=== PATIENT | male | born 1955 | race Caucasian/White ===

== ENCOUNTER 2020-07-30 07:54 | Outpatient (CLI) | payer MEDICARE, SELFPAY ==
--- NOTE | 2020-07-30 08:00 | ECG_ITS ---
Measurements Intervals [place] Rate: 71 P: 66 NH: 182 QRS: 28 QRSD: 106 T: 49 QT: 390 QTc: 424 Interpretive Statements SINUS RHYTHM POOR R WAVE PROGRESSION, ANTERIOR LEADS BASELINE ARTIFACT- I, III, AVR, V4 BORDERLINE ECG Electronically Signed On 07-30-2020 8:19:55 CDT by Jose Pope D.O.
== END 2020-07-30 07:55 | disposition home or self-care (01) ==
LOC: ANHSURGERY 07:59
PROVIDERS: PCP Family Medicine Sports Medicine; Visit Provider Plastic Surgery
DX: Z01.818 Encounter for other preprocedural examination (principal); I10 Essential (primary) hypertension
CPT/HCPCS: 93005

== ENCOUNTER → 2020-08-02 02:15 | Outpatient (CLI) | payer MEDICARE, SELFPAY ==
[2020-08-02 19:19] LABS: SARS-CoV-2 RNA PCR Negative
== END ==
PROVIDERS: PCP Family Medicine Sports Medicine; Visit Provider Plastic Surgery
DX: Z01.812 Encounter for preprocedural laboratory examination (principal); Z20.822 Contact with and (suspected) exposure to COVID-19
CPT/HCPCS: C9803; U0003; U0005

== ENCOUNTER 2020-08-05 00:10 | Day surgery (SDC) | payer MEDICARE, SELFPAY ==
[2020-07-27 09:41] VITALS: BMI 29.6
[2020-08-05 06:25] VITALS: BP 145/89; PULSE 74; RESP 20; TEMP 36.8; O2SAT 96
[2020-08-05] MEDS: LACTATED RINGERS 1,000 ML 30 ML IV CONT (07:00)
--- NOTE | 2020-08-05 07:05 | WPDANESEPPF ---
Anes - Initial Pre Proc Eval Procedure: Operation Date: 08/05/20 07:30 Proposed Procedures p Excision Of Ulcerated Neoplasm Of The Right Radial Forearm With Full Thickness Skin Graft, Excision Of Ulcerated Neoplasm Left Anterior Christian With Frozen Section - Moi Mendes MD Date/Time: 08/05/20 07:05 Surgeon: Moi Mendes MD Pre Op Diagnosis: ulcerated neoplasm right distal radial forearm Patient Data Age: 64 Gender: M Height: 1.85 m Weight: 102 kg Allergies Allergy/AdvReac Type Severity Reaction Status Date / Time Penicillins AdvReac Unknown UNKNOWN Unverified 08/05/20 06:49 Home Medications Medication Instructions Recorded Confirmed Type amlodipine 10 mg PO QAM 07/27/20 08/05/20 History cariprazine [Vraylar] 6 mg PO DAILY 07/27/20 08/05/20 History lisinopril 20 mg PO QAM 07/27/20 08/05/20 History propranolol 80 mg PO BID 07/27/20 08/05/20 History quetiapine 50 mg PO HS 07/27/20 08/05/20 History Patient hx anesthesia problems: none Family hx anesthesia problems: none [facility] Past Medical History Medical History (Updated 08/04/20 @ 10:57 by Aaron Gallegos DO) Anxiety Bipolar disorder Depression History of skin cancer Hypertension Social History Social History Smoking status: Never smoker Alcohol intake: former Alcohol use details: SOCIAL DRINKER IN PAST Substance use: never Living arrangements: with family Additional living arrangements comments: SON Spiritual care concerns: No Anes - Eval Final PreProcedure Day of Procedure 08/05/20 07:05 Patient weight: overweight Heart: regular rate and rhythm Lungs: clear to auscultation and normal air movement Airway: Mallampati scale class III Neurological: alert and oriented Last oral intake: >/= 8 hours ASA classification: III Emergent: no Anesthetic plan: proceed Anesthesia type and monitoring: general GIVS and standard monitoring Informed Consent: The patient's anesthetic plan and its attendant risks and benefits were discussed with the patient/family/POA. Questions were solicited and answers provided to the satisfaction of the patient/family/POA.
--- NOTE | 2020-08-05 07:09 | WPDHPUPDATE1 ---
History and Physical Update Update Date/Time: 08/05/20 07:09 History and Physical has been reviewed, including an updated exam of the patient. There are NO changes in the patient's condition. Risks, benefits, and alternatives have been discussed and questions answered. Patient agrees to proceed with procedure.
[2020-08-05] MEDS: LIDO 1%/EPINEPHRINE 1:100,000 50 ML VIAL INFILTRATE (07:45)
[2020-08-05] MEDS: BACITRACIN OINTMENT 15 GM TUBE 1 APPLIC TOPICAL (07:45)
--- NOTE | 2020-08-05 08:01 | SUR.OPER ---
Frozen section sent with RAMOS Betancourt and received in pathology by Addie
--- NOTE | 2020-08-05 08:37 | SUR.OPER ---
Frozen section # 2 sent with Jl Gilliam RN and received in pathology by Addie
--- NOTE | 2020-08-05 09:02 | PM.OP ---
Procedure Note - Brief Procedure Note - Brief Date of procedure: 08/05/20 Pre-op diagnosis: ulcerated neoplasm right distal radial forearm Ulcerated neoplasm of the right distal radial forearm. 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
[2020-08-05 09:08] VITALS: BP 112/80; PULSE 66; RESP 12; O2SAT 90
--- NOTE | 2020-08-05 09:08 | P.OP_ITS ---
Procedure Note - Detailed Date of procedure: 08/05/20 Pre-op diagnosis: ulcerated neoplasm right distal radial forearm Ulcerated neoplasm of the right distal dorsal forearm. Ulcerated neoplasm of the left anterior yarsani Post-op diagnosis: same Procedure performed: 2.5 cm excision of ulcerated neoplasm of the left anterior yarsani with frozen section and intermediate repair 4 cm. 3 cm excision of ulcerated neoplasm of the right distal radial forearm with intermediate repair 5 cm Description of procedure: The 2 sites were marked on the patient as he waited in the holding area. He was taken to the operating room and placed supine on operating table. A time-out was held and confirmed. The face right forearm were prepped and draped in usual fashion. The lesion from the left yarsani was excised and marked at 12:00 toward the eyebrow. The pathologist on frozen section reveals the the 2 to 3 margin was positive. A 2nd excision from 12-6 was taken with a new 2:00 margin marked. That was reported out as showing free margins. This wound was closed intermediate fashion with undermining of approximately a cm and placement of 3-0 Vicryl sutures and 4-0 nylon skin sutures. The lesion on the forearm was excised as marked with at least 5 mm margin. This specimen was sent for permanent section. The wound was undermined as needed and approximated with intradermal 3-0 Vicryl standing cones removed both ends and the skin was closed with a running 4-0 nylon. Small appropriate bandages were applied to each site and the patient is discharged in stable condition no tourniquet was utilized. Anesthesia: MAC Surgeon: Moi Mendes MD Boat And Plant Utility Supervisor: Carter camarena Estimated blood loss (mL): 5 Drains: No Packing: No Pathology: yes Complications: No immediate complications Condition: stable Disposition: same day
[2020-08-05 09:35] VITALS: BP 126/81; PULSE 60; O2SAT 96
[2020-08-05 10:05] VITALS: BP 134/84; PULSE 58; O2SAT 97
[2020-08-05 10:30] VITALS: BP 128/77; PULSE 60
== END 2020-08-05 10:48 | disposition home or self-care (01) ==
PROVIDERS: PCP Family Medicine Sports Medicine; Visit Provider Plastic Surgery
PROC: (CPT 11643; principal; 2020-08-05 07:30)
DX: C44.319 Basal cell carcinoma of skin of other parts of face (principal); C44.612 Basal cell carcinoma of skin of right upper limb, including shoulder; I10 Essential (primary) hypertension; F31.9 Bipolar disorder, unspecified; F41.9 Anxiety disorder, unspecified
CPT/HCPCS: 11643; 12052; 11603; 12032; 88304; 88305; 88331; 88332; A9270; J2704; J7120

== ENCOUNTER → 2023-11-06 09:10 | Outpatient (REF) | payer MEDICARE, SELFPAY | LOC: ANHLAB 09:10 | PROVIDERS: PCP Family Medicine Sports Medicine; Visit Provider Plastic Surgery | DX: C44.519 Basal cell carcinoma of skin of other part of trunk (principal) | CPT/HCPCS: 88305 ==

== ENCOUNTER 2024-05-15 11:56 | Outpatient (CLI) | payer MEDICARE, SELFPAY ==
--- OUTSIDE RECORDS SUMMARY | 2024-05-15 12:02 | XMS_ITS | Clinical Summary ---
Author Organization [facility] Address [address] [place] [id number] Care Team Providers Care Sheet Mill Supervisor Name Role Phone None, Provider Primary Care Provider Unavaila ble Social History Tobacco Use Types Packs/Day Years Used Date Smoking Tobacco: Never Assessed Sex and Gender Information Value Date Recorded Sex Assigned at Not on file Legal Sex Male 5:55 PM CDT Gender Identity Not on file Sexual Orientation Not on file Plan of Treatment Health Maintenance Due Date Last Done Comments Colorectal Cancer Screening Colonoscopy (10 Years) 1954 Hepatitis C 1972 Zoster Vaccines (1 of 2) 2004 DTaP, Tdap and Td Vaccines (1 - Tdap) 04/03/2006 04/02/2006 Pneumococcal Vaccine: 65+ Years (1 of 1 - PCV) 10/29/2019 COVID-19 Vaccine (1 - 2023- season) 2023 Influenza Adult (#1) 2023 02/07/2022, 01/12/2021, 01/15/2020, Additional history exists RSV Immunization or 60+ Years (1 - 1-dose 75+ series) 2029 Meningococcal B Vaccine Aged Out No l onger eligible based on patient's age to complete this topic Meningococcal Vaccine Aged Out No aurora kartik eligible based on patient's age to complete this topic RSV Immunizations Under 20 Months Aged Out No longer eligible based on patient's age to complete this topic Care Teams Sheet Mill Supervisor Relationship Specialty Start Date End Date None, Provider, PCP - General 01/03/19
--- OUTSIDE RECORDS SUMMARY | 2024-05-15 12:03 | XMS_ITS | Referral Summary ---
Author Organization [facility] Address [address] [place] [address] Care Team Providers Care Client Technologies Analyst Name Role Phone Braeden Dubon MD Primary Care Provider Lincoln Ennis JIVE DEVELOPER Unavailable [phone] Tiesha Caban JIVE DEVELOPER Unavailable Encounters Date Type Department Care Team Description 05/12/2024 Results Follow-Up [facility] Primary Care at [address] [address] Braeden Dubon MD 05/08/2024 12:01 PM HALVER MACHINE OPERATOR - 05/08/2024 11:59 PM HALVER MACHINE OPERATOR Hospital Encounter [address] [address] Mixed hyperlipidemia Discharge Disposition: Discharge to home or self care 05/08/2024 12:00 PM HALVER MACHINE OPERATOR Lab [facility] Outpatient Lab at [address] [id number] Essential hypertension (Primary Dx) 05/08/2024 11:30 AM HALVER MACHINE OPERATOR Office Visit [facility] Primary Care at [address] [address] Braeden Dubon MD Essential hypertension (Primary Dx); Mixed hyperlipidemia; Benign prostatic hyperplasia with urinary hesitancy; Severe obesity (HCC); Sleep disorder, unspecified 04/18/[address] [facility] Primary Care at [address] [address] Giuliana Summers MA 04/07/[address] [facility] Primary Care at [address] [address] Braeden Dubon MD Medical Records Request from Last 3 Months Allergies Active Allergy Reactions Criticality Noted Date Comments Penicillins Urticaria Medium 11/19/2014 Medications fluorouraciL (EFUDEX) 5 % cream PLEASE SEE ATTACHED FOR DETAILED DIRECTIONS 11/12/19 Active propranolol LA (INDERAL LA) 60 mg 24 hr capsuleIndication s:Essential tremor Take 1 capsule (60 mg total) by mouth daily 90 capsule 3 02/06/20 24 2024 Active rosuvastatin (CRESTOR) 5 mg tabletIndications :Mixed hyperlipidemia Take 1 tablet (5 mg total) by mouth daily 90 tablet 3 02/06/20 24 2024 Active lisinopriL (PRINIVIL,ZESTRIL ) 20 mg tabletIndications :Essential hypertension Take 1 tablet (20 mg total) by mouth daily 90 tablet 3 02/06/20 24 2024 Active finasteride (PROSCAR) 5 mg tablet Take 1 tablet (5 mg total) by mouth daily 04/07/19 25 Active triamcinolone (KENALOG) 0.1 % cream APPLY TWICE A DAY FOR NO LONGER THEN 2 WEEKS NEEDED TO LOWER LEGS DIRECTED 04/21/19 25 Active Vraylar 6 mg capsule Take by mouth daily 02/11/20 22 2024 Discontinued olopatadine (PATANOL) 0.1 % ophthalmic solutionIndicatio ns:Allergic Conjunctivitis Administer 1 drop into both eyes 2 (two) times a day as needed for allergies 15 mL 2 09/22/19 23 2024 Discontinued Active Problems Problem Noted Date Diagnosed Date Benign prostatic hyperplasia with urinary hesita ncy 05/08/2024 Class 2 obesity due to exces s calories without serious comorbidity with body mass index (BMI) of 37.0 to 37.9 in adult 02/19/2024 Assessment & Plan (02/19/2024 9:50 AM HALVER MACHINE OPERATOR): BMI Follow-up includes: nutrition counseling, exercise counseling, and education provided. Bipolar I disorder 01/09/2024 Severe obesity 01/09/2024 Assessment & Plan (01/09/2024 10:22 AM CDT): BMI Follow-up includes: nutrition counseling and education provided. Encounter to establish care with new doctor 12/24 Assessment & Plan (01/09/2024 10:31 AM CDT): A(n) initial Medicare Annual Wellness Visit has been performed today. Carter Rubio is not up to date on screening tests. He is in need of Prostate screening, hep c, and Cholesterol screening. He is not up to date on needed preventative vaccinations; He is in need of Influenza and Pneumonia (Prevnar-13 or Pneumovax-23). We discussed healthy lifestyle habits, educational material has been given. Medications reviewed, changes documented as per the medical record and discussed with patient along with risks vs benefits. Specific topics reviewed: drugs, ETOH, and tobacco, importance of regular dental care, importance of regular exercise, importance of varied diet, limit TV, media violence, minimize junk food, and seat belts. Return in 3 months Essential hypertension 01/09/2024 Mixed hyperlipidemia 01/09/2024 Essential tremor 03/31/2020 Immunizations Immunization Administration Dates Next Due Hep B Vaccine 10/02/2006,04/02/2006,02/26/2006 Influenza, Quadrivalent, Hig h Dose, Preservative Free, Intrr 11/21/2021 Influenza, Quadrivalent, Spl it, Intramuscular 12/24/2018 Influenza, Quadrivalent, Spl it, Preservative Free, Intramuscular 01/15/2020 Influenza, Trivalent, High D ose, Split, Preservative Free, Intramuscular 01/09/2024 Influenza, Unspecified 02/07/2022,01/12/2021 Pneumococcal Conjugate Pcv20 01/09/2024 Td, adsorbed 04/02/2006 Social History Tobacco Use Types Packs/Day Years Used Date Smoking Tobacco: Never Smokeless Tobacco: Never PHQ-2 Answer Date Recorded PHQ-2 Total Score (If total score is 3 or more points, staff should administer the PHQ-9) 0 05/08/2024 Sex and Gender Information Value Date Recorded Sex Assigned at Not on file Legal Sex Male 10:42 AM HALVER MACHINE OPERATOR Gender Identity Not on file Sexual Orientation Not on file Last Filed Vital Signs Vital Sign Reading Time Taken Comments Blood Pressure 126/80 05/08/2024 11:28 AM HALVER MACHINE OPERATOR Pulse 84 05/08/2024 11:28 AM HALVER MACHINE OPERATOR Temperature 36.1 C (96.9 F) 05/08/2024 11:28 AM HALVER MACHINE OPERATOR Respiratory Rate 18 05/08/2024 11:28 AM HALVER MACHINE OPERATOR Oxygen Saturation 97% 05/08/2024 11:28 AM HALVER MACHINE OPERATOR Inhaled Oxygen Concentration - - Weight 132 kg (291 lb) 05/08/2024 11:28 AM HALVER MACHINE OPERATOR Height 185.4 cm (6' 1 ) 05/08/2024 11:28 AM HALVER MACHINE OPERATOR Body Mass Index 38.39 05/08/2024 11:28 AM HALVER MACHINE OPERATOR Plan of Treatment Not on file Procedures Procedure Name Priority Date/Time Associated Diagnosis Comments LIPID PANEL Routine 05/08/2024 12:01 PM HALVER MACHINE OPERATOR Mixed hyperlipidemia HEPATITIS C ANTIBODY Routine 01/09/2024 10:42 AM CDT Encounter for hepatitis C screening test for low risk patient PSA SCREEN Routine 01/09/2024 10:42 AM CDT Elevated PSA, between 10 and less than 20 ng/ml from Last 3 Months or Most Recently Relevant to Health Maintenance Results * (ABNORMAL) Lipid panel (05/08/2024 12:01 PM HALVER MACHINE OPERATOR) Cholesterol 216(H) 30 - 199 mg/dL Comment: Interpretive Data Ages < or = 19 years Acceptable: <170 mg/dL Borderline high: 170-199 mg/dL High: >or= 200 mg/dL Ages > or = 20 years Desirable: <200 mg/dL Borderline high: 200-239 mg/dL High: >or= 240 mg/dL Literature References: 1. Expert Panel on Integrated Guidelines for Cardiovascular Health and Risk Reduction in Children and Adolescents. Pediatrics 2011;128:S213 2. NCEP Expert Panel. Circulation 2004;110:227 Current Interpretive Data was last revised on 2017. Triglycerides 179(H) <=149 mg/dL VIRAL PRESSLEY Comment: Interpretive Data Ages < or = 9 years Acceptable: <75 mg/dL Borderline high: 75-99 mg/dL High: >or= 100 mg/dL Ages 10 to 20 years Acceptable: <90 mg/dL Borderline high: 90-129 mg/dL High: >or= 130 mg/dL Ages > or = 20 years Desirable: <150 mg/dL Borderline high: 150-199 mg/dL High: 200-499 mg/dL Very high: >or= 499 mg/dL Literature References: 1. Expert Panel on Integrated Guidelines for Cardiovascular Health and Risk Reduction in Children and Adolescents. Pediatrics 2011;128:S213 2. NCEP Expert Panel. Circulation 2004;110:227 Current Interpretive Data was last revised on 2017. HDL 41 >=40 mg/dL VIRAL PRESSLEY Comment: Interpretive Data Ages < or = 19 years Acceptable: >45 mg/dL Borderline low: 40-45 mg/dL Low: <40 mg/dL Ages > or = 20 years Desirable: >or= 60 mg/dL Low: <40 mg/dL Literature References: 1. Expert Panel on Integrated Guidelines for Cardiovascular Health and Risk Reduction in Children and Adolescents. Pediatrics 2011;128:S213 2. NCEP Expert Panel. Circulation 2004;110:227 Current Interpretive Data was last revised on 2017. LDL, calculated 143(H) <=129 mg/dL VIRAL Comment: Interpretive Data Ages < or = 19 years Acceptable: <110 mg/dL Borderline high: 110-129 mg/dL High: >or= 130 mg/dL Ages > or = 20 years Optimal: <100 mg/dL Near optimal: 100-129 mg/dL Borderline high: 130-159 mg/dL High: >160 mg/dL Calculated using the Shady LDL-C estimating equation. This equation was implemented on 2023. Prior to this date LDL-C was estimated using the Friedewald equation. Literature References: 1. Expert Panel on Integrated Guidelines for Cardiovascular Health and Risk Reduction in Children and Adolescents. Pediatrics 2011;128:S213 2. NCEP Expert Panel. Circulation 2004;110:227 3. Shady Uribe al. SATCIA Cardiol. 2019July 24;5(5):540-548. doi: 10.1001/jamacardio.2020.0013 Current Interpretive Data was last revised on 2023. Non-HDL Cholesterol 175 mg/dL VIRAL PRESSLEY Comment: Interpretive Data Ages < or = 19 years Acceptable: <120 mg/dL Borderline high: 120-144 mg/dL High: >145 mg/dL Ages > or = 20 years When triglycerides are >200 mg/dL, Non-HDL cholesterol is a secondary target of therapy with treatment goals that are 30 mg/dL greater than the LDL cholesterol target. Literature References: 1. Expert Panel on Integrated Guidelines for Cardiovascular Health and Risk Reduction in Children and Adolescents. Pediatrics 2011;128:S213 2. NCEP Expert Panel. Circulation 2004;110:227 Current Interpretive Data was last revised on 2017. Chol/HDL ratio 5 VIRAL Blood 05/08/2024 12:0 1 PM HALVER MACHINE OPERATOR 05/08/2024 9:04 PM HALVER MACHINE OPERATOR Braeden Dubon MD LAB BLOOD ORDERABLES Final Result Performing Organization Address [facility] de Phone Number VIRAL [id number] [place] [address] * (ABNORMAL) PSA screen (01/09/2024 10:42 AM CDT) PSA-Total 10.80(H) <=5.40 ng/mL Comment: Interpretive Data AGE SEX REFERENCE INTERVAL 0 minutes-150 years Female None 0 minutes-49 years Male None 50-59 years Male 0-3.90 60-69 years Male 0-5.40 70-79 years Male 0-6.20 80-150 years Male 0-6.20 The Ko PSA Total assay procedure was used. Results from different manufacturers or methods may not be comparable. Serial testing should be performed using the same method. Current interpretive data last revised 21. Blood 01/09/2024 10:4 2 AM CDT 01/09/2024 3:18 PM CDT Braeden Dubon MD LAB BLOOD ORDERABLES Final Result Performing Organization Address [facility] de Phone Number VIRAL [id number] [address] Department of Laboratories [place] [phone] * Hepatitis C antibody Blood (01/09/2024 10:42 AM CDT) Hep C Ab Nonreactive Nonreactive Comment: Interpretive Data Nonreactive: Antibodies to HCV not detected. Does NOT exclude the possibility of recent exposure to HCV. Equivocal: Equivocal for HCV antibodies. Supplemental molecular testing will be automatically performed to determine infection status in accordance with current CDC screening recommendations. Reactive: Positive for HCV antibodies. This may represent current or past HCV infection. Supplemental molecular testing will be automatically performed to determine current infection status in accordance with current CDC screening recommendations. Interpretive data was last revised on 2019. Blood 01/09/2024 10:4 2 AM CDT 01/09/2024 3:18 PM CDT Braeden Dubon MD LAB MICROBIOLOGY - GENERAL ORDERABLES Final Result Performing Organization Address City/State/[facility] Phone Number VIRAL [phone] [address] Department [place] [address] from Last 3 Months or Most Recently Relevant to Health Maintenance Insurance MEDICARE MEDICARE MEDICARE Care Teams Client Technologies Analyst Relationship Specialty Start Date End Date Braeden Dubon MD [address] [facility] [address] [place] [address] PCP - General Family Medicine 01/09/24 Lincoln Ennis NP [address] [place] [address] Nurse Practitioner Nurse Practitioner 01/09/24 Tiesha Caban NP [address] [facility] [address] Nurse Practitioner 01/09/24
--- OUTSIDE RECORDS SUMMARY | 2024-05-15 12:03 | XMS_ITS | Patient Health Record ---
Author Organization [facility] Address [address] [place] [address] Care Team Providers Care Sandwich Counter Attendant Name Role Phone Lincoln Ennis Unavailable [phone] Migration, Provider Unavailable Unavailable Allergies Allergen (clinical drug ingredient) Drug/Non Drug Allergy documented on EMR Reaction Allergy Type Onset Date Status Substance with penicillin structure and antibacterial mechanism of action (substance) Penicillins Unknown Drug Allergy 01/22/2023 Active Reason For Referral No Information Medications Medication SIG (Take, Route, Frequency, Duration) Notes Start Date End Date Status Lisinopril 20 MG Oral 04/23/2023 Ac tive Vraylar 6 MG TAKE [address] [facility] EVERY DAY FOR 30 DAYS for 30 Active amLODIPine Besylate 10 MG Oral 04/23/2023 Active Ingrezza 80 MG 1 capsule Orally Onc e a day for 30 days 02/08/2024 06/07/2024 Active Rosuvastatin Calcium 5 MG Oral 04/23/2023 Active Immunizations Vaccine Route Administration Date Status Comme nts Influenza virus vaccine, quadrivalent (IIV4), split virus, 0.25 mL dosage Unknown 12/24/2018 Administered Novel [id number], preservative free Unknown 01/15/2020 Administered Pfizer Biontech Covid-19 Vac cine 2nd dose Unknown 07/23/2020 Administered Pfizer Biontech Covid-19 Vac cine 2nd dose Unknown 08/13/2020 Administered Pfizer Biontech Covid-19 Vac cine 2nd dose Unknown 03/10/2021 Administered Social History Sex Assigned At : Social History Observation Description Sex Assigned At Female Problems Problem Type SNOMED Code ICD Code Onset Dates Problem Status W/U Status Risk Notes Problem Bipolar I disorder (784713844) Bipolar disorder, in partial remission, most recent episode hypomanic (F31.71) Active confirmed Vital Signs Heart Rate 105 /min 02/08/2024 Height-cm 185.42 cm 02/08/2024 Blood pressure diastolic 97 mm Hg 02/08/2024 Weight-kg 127.01 kg 02/08/2024 Height 73.00 in 02/08/2024 Blood pressure systolic 145 mm Hg 02/08/2024 Weight 280.0 lbs 02/08/2024 BMI 36.94 kg/m2 02/08/2024 Encounters Encounter Location Date Provider Diagnosis [facility] [address] [address] 10/19/2023 Lincoln Ennis Bipolar disorder, in partial remission, most recent episode hypomanic F31.71 ; Other termite control servicer (current) drug therapy Z79.899 and Drug induced subacute dyskinesia G24.01 [employer] [facility] [address] [address] 02/08/2024 Lincolnzena Callesa Bipolar disorder, in partial remission, most recent episode hypomanic F31.71 ; Other group home (current) drug therapy Z79.899 and Drug induced subacute dyskinesia G24.01 [employer] [facility] [address] [address] 08/11/2023 Provider Migration [facility] [address] [address] 08/12/2023 Provider Migration [facility] [address] [address] 10/30/2023 Lincolnzena Callesa Bipolar disorder, in partial remission, most recent episode hypomanic F31.71 [facility] [address] [address] 02/13/2024 Lincoln Ennis Bipolar disorder, in partial remission, most recent episode hypomanic F31.71 Assessments Encounter Date Diagnosis (ICD Code) Assessment Notes Treatment Notes Treatment Clinical Notes Section Notes 10/19/2023 Other group home (current) drug therapy (ICD-10 - Z79.899) 1. Bipolar Disorder: - Patient reports no significant increase in depressive or manic symptoms since the last visit in March. - No hallucinations reported. - Patient is compliant with Vraylar 6 mg daily. Plan: - Continue Vraylar 6 mg daily. - Monitor for any changes in mood or behavior. - Follow up in 4 months or sooner if any concerns arise. 2. Anxiety: - Patient reports feeling nervous and anxious, but no significant change from baseline. Plan: - Continue to monitor anxiety levels during follow-up visits. - Encourage patient to discuss any increase in anxiety with their primary care provider. 02/08/2024 Bipolar disorder, in partial remission, most recent episode hypomanic (ICD-10 - F31.71) 1. Mood stability: - Patient reports no recent depressive or manic symptoms. - Continue current medications, including Vraylar. 2. Tremors: - Patient is currently taking propranolol for tremors. - No changes to propranolol at this time. 3. Tardive dyskinesia: - Patient experiences abnormal movements, primarily in hands and feet. Plan: - Start Ingrezza for tardive dyskinesia management. - Schedule follow-up in 6 to 8 weeks to assess the effectiveness of Ingrezza. 4. Blood pressure management: - Patient was switched from amlodipine to propranolol for blood pressure control and tremors. Plan: - Continue propranolol and monitor blood pressure. 5. Dental health: - Patient reports needing to see a dentist. Plan: - Encourage patient to schedule a dental appointment for evaluation and treatment as needed. 6. Cognitive function: - Patient demonstrated intact cognitive function during the visit by counting backward from 20 and reciting the days of the week backward. - No further assessment or intervention needed at this time. 10/19/2023 Bipolar disorder, in partial remission, most recent episode hypomanic (ICD-10 - F31.71) 1. Bipolar Disorder: - Patient reports no significant increase in depressive or manic symptoms since the last visit in March. - No hallucinations reported. - Patient is compliant with Vraylar 6 mg daily. Plan: - Continue Vraylar 6 mg daily. - Monitor for any changes in mood or behavior. - Follow up in 4 months or sooner if any concerns arise. 2. Anxiety: - Patient reports feeling nervous and anxious, but no significant change from baseline. Plan: - Continue to monitor anxiety levels during follow-up visits. - Encourage patient to discuss any increase in anxiety with their primary care provider. 10/19/2023 Drug induced subacute dyskinesia (ICD-10 - G24.01) tried Austedo, felt it didn't work 1. Bipolar Disorder: - Patient reports no significant increase in depressive or manic symptoms since the last visit in March. - No hallucinations reported. - Patient is compliant with Vraylar 6 mg daily. Plan: - Continue Vraylar 6 mg daily. - Monitor for any changes in mood or behavior. - Follow up in 4 months or sooner if any concerns arise. 2. Anxiety: - Patient reports feeling nervous and anxious, but no significant change from baseline. Plan: - Continue to monitor anxiety levels during follow-up visits. - Encourage patient to discuss any increase in anxiety with their primary care provider. 02/08/2024 Other group home (current) drug therapy (ICD-10 - Z79.899) 1. Mood stability: - Patient reports no recent depressive or manic symptoms. - Continue current medications, including Vraylar. 2. Tremors: - Patient is currently taking propranolol for tremors. - No changes to propranolol at this time. 3. Tardive dyskinesia: - Patient experiences abnormal movements, primarily in hands and feet. Plan: - Start Ingrezza for tardive dyskinesia management. - Schedule follow-up in 6 to 8 weeks to assess the effectiveness of Ingrezza. 4. Blood pressure management: - Patient was switched from amlodipine to propranolol for blood pressure control and tremors. Plan: - Continue propranolol and monitor blood pressure. 5. Dental health: - Patient reports needing to see a dentist. Plan: - Encourage patient to schedule a dental appointment for evaluation and treatment as needed. 6. Cognitive function: - Patient demonstrated intact cognitive function during the visit by counting backward from 20 and reciting the days of the week backward. - No further assessment or intervention needed at this time. 10/30/2023 Bipolar disorder, in partial remission, most recent episode hypomanic (ICD-10 - F31.71) Electronic Prior Authorization was requested for Vraylar 6 MG Capsule. Provider can order medication once approval received. 02/13/2024 Bipolar disorder, in partial remission, most recent episode hypomanic (ICD-10 - F31.71) Electronic Prior Authorization was requested for Ingrezza 40 MG Capsule. Provider can order medication once approval received. 02/08/2024 Drug induced subacute dyskinesia (ICD-10 - G24.01) tried Austedo, felt it didn't work 1. Mood stability: - Patient reports no recent depressive or manic symptoms. - Continue current medications, including Vraylar. 2. Tremors: - Patient is currently taking propranolol for tremors. - No changes to propranolol at this time. 3. Tardive dyskinesia: - Patient experiences abnormal movements, primarily in hands and feet. Plan: - Start Ingrezza for tardive dyskinesia management. - Schedule follow-up in 6 to 8 weeks to assess the effectiveness of Ingrezza. 4. Blood pressure management: - Patient was switched from amlodipine to propranolol for blood pressure control and tremors. Plan: - Continue propranolol and monitor blood pressure. 5. Dental health: - Patient reports needing to see a dentist. Plan: - Encourage patient to schedule a dental appointment for evaluation and treatment as needed. 6. Cognitive function: - Patient demonstrated intact cognitive function during the visit by counting backward from 20 and reciting the days of the week backward. - No further assessment or intervention needed at this time. Plan Of Treatment No Information Insurance Providers Payer Name Payer Address Payer Phone Subscriber Number Group Number Insured Name Patient Relationship to Insured Coverage Start Date Coverage End Date Medicare-I l Medicare [address] [place] [phone] [id number] OLAYINKA MILLER Self - patient is the insured Medical (General) History Medical History History ICD Code Problems: Altered mental status Bipolar disorder Edema of lower extremity Long-term current use of drug therapy Manic bipolar I disorder in partial jason ssion Neuroleptic-induced tardive dyskinesia Parkinsonian tremor Persistent insomnia Psychotic disorder ,
--- OUTSIDE RECORDS SUMMARY | 2024-05-15 12:03 | XMS_ITS | Clinical Summary ---
Author Organization [facility] Address [address] [place] [address] Care Team Providers Care Stallion Keeper Name Role Phone Unavailable Primary Care Provider Unavailabl e Source Comments [facility],non-owned Affiliates and Associated Physician Practices is amultiple site organization consisting of ambulatory clinics and hospital sitesin [place], [place], [place] and [place]. This disclosure is being madepursuant to the Care Everywhere program and may not contain all information available regarding this patient. Last updated 17.[facility] Allergies Active Allergy Reactions Criticality Noted Date Comments Penicillins Urticaria Low 11/19/2014 Medications Be aware that medications may not be up to date on this document. Always verify current medications with the patient. No known medications Social History Tobacco Use Types Packs/Day Years Used Date Smoking Tobacco: Never Alcohol Use Standard Drinks/Week Comments Yes 0 (1 standard drink = 0.6 oz pur e alcohol) moderate/ socially Sex and Gender Information Value Date Recorded Sex Assigned at Not on file Gender Identity Not on file Sexual Orientation Not on file Last Filed Vital Signs Vital Sign Reading Time Taken Comments Blood Pressure 128/78 10/10/2012 2:07 PM CDT Pulse 69 11/19/2014 2:24 PM CDT Temperature - - Respiratory Rate - - Oxygen Saturation - - Inhaled Oxygen Concentration - - Weight 86.2 kg (190 lb) 11/19/2014 2:24 PM CDT Height 186.7 cm (6' 1.5 ) 11/19/2014 2:24 PM CDT Body Mass Index 24.73 11/19/2014 2:24 PM CDT Plan of Treatment Health Maintenance Due Date Last Done Comments COLOGUARD (AGES 45-75) - COL ON CA SCREENING 1955 COLON MONITORING 1955 COLONOSCOPY - COLON CA SCREENING 1954 CT COLONOGRAPHY - COLON CA SCREENING 1955 Colorectal Cancer Screening 1955 FIT - COLON CA SCREENING 1955 FLEX SIG - COLON CA SCREENING 1955 LIPID TESTING 1955 MEDICARE AWV 12 MONTHS 1955 HEPATITIS C SCREENING 10/23/1972 DTAP/TDAP/TD VACCINES (1 - Tdap) 1973 PNEUMOCOCCAL VACCINE 50+ (1 of 1 - PCV) 2004 ZOSTER VACCINE (1 of 2) 2004 COVID-19 VACCINE (1 - 2023-2 5 season) 2023 INFLUENZA VACCINE (#1) 2023 DEPRESSION SCREENING 03/26/2024 Respiratory Syncytial Virus (RSV) Vaccine Pt: or over 60 yrs (1 - 1-dose 75+ series) 2029 HEPATITIS B VACCINE Aged Out No longe r eligible based on patient's age to complete this topic HIB VACCINE Aged Out No longer eligi ble based on patient's age to complete this topic HPV VACCINE Aged Out No longer eligi ble based on patient's age to complete this topic MENINGOCOCCAL (Group B) VACCINE Aged Out No longer eligible based on patient's age to complete this topic MENINGOCOCCAL VACCINE Aged Out No aurora kartik eligible based on patient's age to complete this topic Carter Rubio Personal/Family Self 1955 [facility] [place] [address]
--- OUTSIDE RECORDS SUMMARY | 2024-05-15 12:03 | XMS_ITS | Encounter Summary ---
Author Organization [facility] Address [address] [place] [address] Care Team Providers Care Vocal Performer Name Role Phone Unavailable Primary Care Provider Unavailabl e Encounter Details Date Type Department Care Team (Late st Contact Info) Description 10/10/2012 [facility] Outpatient Visit EXTERNAL NON-[facility] DEPT Ventura Colunga DO [address] [place] [id number] Social History Tobacco Use Types Packs/Day Years Used Date Smoking Tobacco: Never Alcohol Use Standard Drinks/Week Comments Yes 0 (1 standard drink = 0.6 oz pur e alcohol) moderate/ socially Sex and Gender Information Value Date Recorded Sex Assigned at Not on file Gender Identity Not on file Sexual Orientation Not on file documented as of this encounter Plan of Treatment Not on file documented as of this encounter Visit Diagnoses Not on filedocumented in this encounter
--- OUTSIDE RECORDS SUMMARY | 2024-05-15 12:03 | XMS_ITS ---
Author Organization [facility] Address [address] [facility] [address] [place] [address] Care Team Providers Care Patch Worker Name Role Phone Lincoln Ennis Unavailable [phone] REASON FOR VISIT Other Social History Sex Assigned At : Social History Observation Description Sex Assigned At Female Problems Problem Type SNOMED Code ICD Code Onset Dates Problem Status W/U Status Risk Notes Problem Bipolar I disorder (794984559) Bipolar disorder, in partial remission, most recent episode hypomanic (F31.71) Active confirmed Encounters Encounter Location Date Provider Diagnosis [facility] [address] [facility] [address] [place] [address] 10/30/2023 Licnolnzena Ennis Bipolar disorder, in partial remission, most recent episode hypomanic F31.71 Assessments Encounter Date Diagnosis (ICD Code) Assessment Notes Treatment Notes Treatment Clinical Notes Section Notes 10/30/2023 Bipolar disorder, in partial remission, most recent episode hypomanic (ICD-10 - F31.71) Electronic Prior Authorization was requested for Vraylar 6 MG Capsule. Provider can order medication once approval received. Plan Of Treatment Treatment Notes Assessment Notes Bipolar disorder, in partial remission, most recent episode hypomanic Electronic Prior Authorization was reque sted for Vraylar 6 MG Capsule. Provider can order medication once approval received. Progress Notes * OLAYINKA MILLERDOB:1955 ( 68 yo M)Acc No.[id number]:10/30/2023 Patient: OLAYINKA SCOTT :1955 A ge:68 Y S ex:Male Address:[address] [place] [address], [address] Subjective: * Chief Complaints: * O ther * Medical History: * Surgical History: * Hospitalization/Major Diagno stic Procedure: * Medications: Objective: * Vitals: * Physical Examination: Assessment: * Assessment: 1. B ipolar disorder, in partial remission, most recent episode hypomanic - F31.71 ? Plan: * Treatment: * Procedure Codes: * true * Date: Generated for Florian rodriguez/Mica/Chuysmitting on: 0 05/15/2024 12:03 PM WIRE STRAIGHTENER
--- OUTSIDE RECORDS SUMMARY | 2024-05-15 12:03 | XMS_ITS | Continuity of Care Document ---
Author Organization [facility] Address [address] [place] [address] Phone Care Team Providers Care Boat Motor Mechanic Name Role Phone Suha Post MD Unavailable Unavailable Procedures Procedure Date COLONOSCOPY, REMOVAL SNARE TECH 019 TISSUE EXAM BY PATHOLOGIST Advance Directives Directive Yes / No Effective Date File Name No Information Encounters Encounter Description Practice Location Reason(s) For Visit Diagnoses Date Provider Providers Copied on Encounter [email or web address], [address], [place], [place], [id number], tel:[phone] [facility] No Information Sejal Borden. [facility] [address], [id number], . tel:[phone] [facility], [address], [place], [id number], tel:[phone] [facility] No Information Sejal Borden. [address] [place] [address], [address], [id number], . tel:[phone] Referring Provider: Suha Post, [address], [address]. tel:[phone] [facility], [address], [place], [place], [id number], tel:[phone] [facility] No Information Sejal Borden. [address] [facility], [address], [id number], . tel:[phone] Referring Provider: Aaron Yoon, [address] [place] [address], [address]. tel:[phone] Family History Family Member Type Diagnosis Age At Onset No Information Payers Payer name Insurance type Covered constitution party ID Authoriza tion(s) No Information Social History Type Description Quantity Date Captured Comments Sex Male Smoking Status No Information Chief Complaint And Reason For Visit No Information Reason For Referral Reason For Referral No Information History Of Present Illness Encounter Date Complaint History Of Prese nt Illness No Information Functional Status Date Functional Assessmen t No Information Instructions Date Instruction Additional Infor mation No Information Assessments Type Assessment Date No Information Patient Care Teams Name Effective Dates (start - stop) Status Members No Information
--- OUTSIDE RECORDS SUMMARY | 2024-05-15 12:03 | XMS_ITS | Clinical Summary ---
[facility] Organization [facility] Address [address] [place] [address] Care Team Providers Care Multiple Tube Winding Machine Operator Name Role Phone Braeden Dubon MD Primary Care Provider Lincoln Ennis SHEET METAL INSULATOR Unavailable [phone] Tiesha Caban SHEET METAL INSULATOR Unavailable Allergies Active Allergy Reactions Criticality Noted Date Comments Penicillins Urticaria Medium 11/19/2014 Medications fluorouraciL (EFUDEX) 5 % cream PLEASE SEE ATTACHED FOR DETAILED DIRECTIONS 11/12/19 24 Active propranolol LA (INDERAL LA) 60 mg [...] 02/19/2024 Assessment & Plan (02/19/2024 9:50 AM RADIOLOGICAL ENGINEER): BMI Follow-up includes: nutrition counseling, exercise counseling, and education provided. Bipolar I disorder 01/09/2024 Severe obesity 01/09/2024 Assessment & Plan (01/09/2024 10:22 AM CDT): BMI Follow-up includes: nutrition counseling and education provided. Encounter to establish care with new doctor 12/24 Assessment & Plan (01/09/2024 10:31 AM CDT): A(n) initial Medicare Annual Wellness Visit has been performed today. Ronaldo Rubio is not up to date on [...] 01/09/2024 Mixed hyperlipidemia 01/09/2024 Essential tremor 03/31/2020 Encounters Date Type Department Care Team Description 05/12/2024 Results Follow-Up [facility] Primary Care at [address] [address] Braeden Dubon MD 05/08/2024 12:01 PM RADIOLOGICAL ENGINEER - 05/08/2024 11:59 PM RADIOLOGICAL ENGINEER Hospital Encounter [address] [address] Mixed hyperlipidemia Discharge Disposition: Discharge to home or self care 05/08/2024 12:00 PM RADIOLOGICAL ENGINEER Lab [facility] Outpatient Lab at [address] [address] Essential hypertension (Primary Dx) 05/08/2024 11:30 AM RADIOLOGICAL ENGINEER Office Visit [facility] Primary Care at [address] [address] Braeden Dubon MD Essential hypertension (Primary Dx); Mixed hyperlipidemia; Benign prostatic hyperplasia with urinary hesitancy; Severe obesity (HCC); Sleep disorder, unspecified 04/18/2024 Telephone [facility] Primary Care at [address] [address] Giuliana Summers MA 04/07/2024 Telephone [facility] Primary Care at [address] [address] Braeden Dubon MD Medical Records Request from Last 3 Months Immunizations Immunization Administration Dates Next Due Hep B Vaccine 10/02/2006,04/02/2006,02/26/2006 Influenza, Quadrivalent, Hig h Dose, Preservative Free, Intrr 11/21/2021 Influenza, Quadrivalent, Spl it, Intramuscular 12/24/2018 Influenza, Quadrivalent, Spl it, Preservative Free, Intramuscular 01/15/2020 Influenza, Trivalent, High D ose, Split, Preservative Free, Intramuscular 01/09/2024 Influenza, Unspecified 02/07/2022,01/12/2021 Pneumococcal Conjugate Pcv20 01/09/2024 Td, adsorbed 04/02/2006 Surgical History Surgery Date Site/Laterality Comments SKIN CANCER EXCISION Medical History Medical History Date Comments Tremors of nervous system Skin cancer Essential tremor 03/31/2020 Bipolar I disorder (HCC) 01/09/2024 Severe obesity (HCC) 01/09/2024 Essential hypertension 01/09/2024 Mixed hyperlipidemia 01/09/2024 Family History Medical History Relation Name Comments No Known Problems Brother 1 Pancreatic cancer Brother 2 Pancreatic cancer Father Colon cancer Mother Relation Name Status Comments Brother 1 Alive Brother 2 Alive Father Mother Social History Tobacco Use Types Packs/Day Years Used Date Smoking Tobacco: Never Smokeless Tobacco: Never PHQ-2 Answer Date Recorded PHQ-2 Total Score (If total score is 3 or more points, staff should administer the PHQ-9) 0 05/08/2024 Sex and Gender Information Value Date Recorded Sex Assigned at Not on file Legal Sex Male 10:42 AM RADIOLOGICAL ENGINEER Gender Identity Not on file Sexual Orientation Not on file Obstetrics History Last Filed Vital Signs Vital Sign Reading Time Taken Comments Blood Pressure 126/80 05/08/2024 11:28 AM RADIOLOGICAL ENGINEER Pulse 84 05/08/2024 11:28 AM RADIOLOGICAL ENGINEER Temperature 36.1 C (96.9 F) 05/08/2024 11:28 AM RADIOLOGICAL ENGINEER Respiratory Rate 18 05/08/2024 11:28 AM RADIOLOGICAL ENGINEER Oxygen Saturation 97% 05/08/2024 11:28 AM RADIOLOGICAL ENGINEER Inhaled Oxygen Concentration - - Weight 132 kg (291 lb) 05/08/2024 11:28 AM RADIOLOGICAL ENGINEER Height 185.4 cm (6' 1 ) 05/08/2024 11:28 AM RADIOLOGICAL ENGINEER Body Mass Index 38.39 05/08/2024 11:28 AM RADIOLOGICAL ENGINEER Plan of Treatment Health Maintenance Due Date Last Done Comments Covid-19 Vaccine ( season) 2023 03/10/2021, 08/13/2020, 07/23/2020 Fall Risk Assessment 01/08/2025 01/09/2024, 09/22/19 23 Well Visit 65+ 01/08/2025 01/09/2024 Zoster Vaccine (1 of 2) 01/08/2025 Post poned from 2004 (Insurance / Financial) Colon Cancer Screening-Colonoscopy 03/25/2025 Postponed from 1955 (Patient declined, but will receive in the future) DTaP/Tdap/Td Vaccine (1 - Tdap) 03/25/2025 04/02/2006 Postponed from 04/03/2006 (Insurance / Financial) Depression Screening 05/08/2025 05/08/2024, 01/09/2024, 09/21/2022 Prostate Cancer Screening-PSA 01/08/2026 01/09/2024, 03/09/2022 Hepatitis B Screening Completed 10/02/2006 , 04/02/2006, 02/26/2006 Hepatitis C Screening Completed 01/09/2024 Influenza Vaccine Completed 01/09/2024, , 11/21/2021, Additional history exists Pneumococcal vaccine 65+ Completed 01/09/2024 Procedures Procedure Name Priority Date/Time Associated Diagnosis Comments LIPID PANEL Routine 05/08/2024 12:01 PM RADIOLOGICAL ENGINEER Mixed hyperlipidemia HEPATITIS C ANTIBODY Routine 01/09/2024 10:42 AM CDT Encounter for hepatitis C screening test for low risk patient PSA SCREEN Routine 01/09/2024 10:42 AM CDT Elevated PSA, between 10 and less than 20 ng/ml from Last 3 Months or Most Recently Relevant to Health Maintenance Results * (ABNORMAL) Lipid panel (05/08/2024 12:01 PM RADIOLOGICAL ENGINEER) Cholesterol 216(H) 30 - 199 mg/dL Comment: [...] 2017. LDL, calculated 143(H) <=129 mg/dL VIRAL PRESSLEY Comment: Interpretive Data Ages [...] NCEP Expert Panel. Circulation 2004;110:227 3. Shady Uirbe al. STACIA Cardiol. 2020 July 24;5(5):540-548. doi: 10.1001/jamacardio.2020.0013 Current Interpretive Data was [...] last revised on 2017. Chol/HDL ratio 5 CERNER Blood 05/08/2024 12:0 1 PM RADIOLOGICAL ENGINEER 05/08/2024 9:04 PM RADIOLOGICAL ENGINEER Braeden Dubon MD LAB BLOOD ORDERABLES Final Result Performing Organization Address [facility] de Phone Number [facility] [address] [place] [address] * (ABNORMAL) PSA screen (01/09/2024 10:42 AM [...] BLOOD ORDERABLES Final Result Performing Organization Address [facility] Co de Phone Number [facility] [address] [place] [address] * Hepatitis C antibody Blood (01/09/2024 10:42 [...] LAB MICROBIOLOGY - [place] [address] [facility] Department [place] [address] from Last 3 Months or Most Recently Relevant to Health Maintenance Insurance MEDICARE MEDICARE MEDICARE Care Teams Multiple Tube Winding Machine Operator Relationship Specialty Start Date End Date Braeden Dubon MD [address] [facility] [address] [place] [address] PCP - General Family Medicine 01/09/24 Lincoln Ennis NP [address] [place] [address] [address] [place] [address] Nurse Practitioner Nurse Practitioner 01/09/24 Tiesha Caban NP [address] [facility] [facility] [address] Nurse Practitioner 01/09/24
--- OUTSIDE RECORDS SUMMARY | 2024-05-15 12:03 | XMS_ITS | Referral Summary ---
Author Organization [facility] [employer] Address [address] [place] [address] Care Team Providers Care Medical Claims Analyst Name Role Phone Unavailable Primary Care Provider Unavailabl e Source Comments [facility] [employer],non-owned Affiliates and Associated Physician Practices is amultiple site organization consisting of ambulatory clinics and hospital sitesin [place] and [place]. This disclosure is being madepursuant to the Care Everywhere program and may not contain all information available regarding this patient. Last updated 17.[facility] [employer] Allergies Active Allergy Reactions Criticality Noted Date [...] 11/19/2014 2:24 PM CDT Plan of Treatment Not on file
--- OUTSIDE RECORDS SUMMARY | 2024-05-15 12:03 | XMS_ITS ---
Author Organization [facility] [employer] Address [address] [place] [address] Care Team Providers Care Roaster Operator Name Role Phone Lincoln Ennis Unavailable [phone] Allergies Allergen (clinical drug ingredient) Drug/Non Drug Allergy documented on EMR Reaction Allergy Type Onset Date Status Substance with penicillin structure and antibacterial mechanism of action (substance) Penicillins Unknown Drug Allergy 01/22/2023 Active REASON FOR VISIT follow up visit, medication evaluation Medications Medication SIG (Take, Route, Frequency, Duration) Notes Start Date End Date Status Vraylar 6 MG 1 capsule Orally Once a day for 30 day(s) 10/31/2023 Active Lisinopril 20 MG Oral 04/23/2023 Ac tive Ingrezza 40 MG 1 capsule Orally Once a day for 7 days samples given 02/08/2024 02/15/2024 Active amLODIPine Besylate 10 MG Oral 04/23/2023 Active Ingrezza 80 MG 1 capsule Orally Once a day for 30 days 02/08/2024 06/07/2024 Active Vraylar 6 mg 1 tablet Oral daily for 90 days Active Rosuvastatin Calcium 5 MG Oral 04/23/2023 Active Social History Sex Assigned At : Social History Observation Description Sex Assigned At Female Vital Signs Blood pressure systolic 145 mm Hg 02/08/20 24 Blood pressure diastolic 97 mm Hg 024 Heart Rate 105 /min 02/08/2024 Height 73.00 in 02/08/2024 Weight 280.0 lbs 02/08/2024 BMI 36.94 kg/m2 02/08/2024 Height-cm 185.42 cm 02/08/2024 Weight-kg 127.01 kg 02/08/2024 Encounters Encounter Location Date Provider Diagnosis [facility] [address] [facility] [address] [place] [address] 02/08/2024 Lincoln Ennis Bipolar disorder, in partial remission, most recent episode hypomanic F31.71 ; Other assistant terminal manager (current) drug therapy Z79.899 and 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 02/08/2024 Other assistant terminal manager (current) drug therapy (ICD-10 - Z79.899) 1. [...] assessment or intervention needed at this time. 02/08/2024 Drug induced subacute dyskinesia (ICD-10 - [...] needed at this time. Plan Of Treatment Medication Medication Name Sig Start Date Stop Date Notes Ingrezza 40 MG 1 capsule Orally Onc e a day for 7 days 02/08/2024 02/15/2024 samples given Ingrezza 80 MG 1 capsule Orally Onc e a day for 30 days 02/08/2024 06/07/2024 Vraylar 6 mg 1 tablet Oral daily for 90 days Treatment Notes Assessment Notes Drug induced subacute dyskinesia tried A ustedo, felt it didn't work Next Appt Details Follow Up: 6 Weeks, Reason: f/u tardive dyskinesia Progress Notes * OLAYINKA MILLERDOB:1955 ( 68 yo M)Acc No.[id number]:02/08/2024 Patient: May OLAYINKA HAM Provider: BRIAN SLATER :1955 A ge:68 Y S ex:Male Date:02/08/2024 [facility] Subjective: * Chief Complaints: * F ollow up visit, medication evaluation * HPI: D epression Screening: Chief complaint - Follow-up for mood stability and medication management. the note is transcribed using speech recognition software. It is a reflection of a visit with the patient. It might have some inaccuracy, including medication names and transcribing errors, though efforts have been made to correct them. The patient reports that his mood has been stable over the past couple of months. He has been under the care of Dr. Dubon at [facility], with no changes made to his treatment plan. His current medication regimen includes propranolol for tremors and Vraylar, though he notes difficulties in obtaining Vraylar. The patient denies experiencing any depressive or manic symptoms and reports no hallucinations. The patient's daily activities consist of eating, sleeping, and watching TV. He reports sleeping well through the night and maintaining adequate food intake. His medical history includes a trial of Austedo, which was never filled due to complications. He recalls taking it for a month but doesn't remember any effects. The patient mentions needing dental care but does not wear dentures. When assessed, he successfully counted backward from 20 and recited the days of the week in reverse order without difficulty. He denies problems with biting his cheeks or tongue and does not report excessive eye blinking. The patient's tremors primarily affect his hands and feet. DONALD-7 (2018 Edition) F eeling nervous, anxious, or on edge?Not at all, N ot being able to stop or control worrying N ot at all, W orrying too much about different things N ot at all, T rouble relaxing N ot at all, B eing so restless that it is hard to sit still N ot at all, B ecoming easily annoyed or irritable N ot at all, F eeling afraid as if something awful might happen N ot at all, T otal DONALD-7 Score 0 , I f you checked any problems, how difficult have they made it for you to do your work, take care of things at home, or get along with other people? N ot difficult at all, I nterpretation of Total ( 0 to 4) No Anxiety. D epression screening: PHQ-9 L ittle interest or pleasure in doing things N ot at all, F eeling down, depressed, or hopeless N ot at all, T rouble falling or staying asleep, or sleeping too much N ot at all, F eeling tired or having little energy N ot at all, P oor appetite or overeating N ot at all, F eeling bad about yourself or that you are a failure, or have let yourself or your family down N ot at all, T rouble concentrating on things, such as reading the newspaper or watching television N ot at all, M oving or speaking so slowly that other people could have noticed; or the opposite, being so fidgety or restless that you have been moving around a lot more than usual N ot at all, T houghts that you would be better off or of hurting yourself in some way N ot at all, T otal Score 0 . I ntervention D epression Screening Findings N egative, S uicide Risk Assessment Performed 1 04/09/2023 . H istory of Presenting Problem: Psychosis n o hallucinations hx hallucinations. S leep disturbance s table. * Medical History: * Surgical History: * Hospitalization/Major Diagno stic Procedure: * Medications: T akingRosuvastatin Calcium 5 MG Tablet Oral amLODIPine Besylate 10 MG Tablet Oral Lisinopril 20 MG Tablet Oral Vraylar 6 MG Capsule 1 capsule Orally Once a day Medication List reviewed and reconciled with the patientTaking Rosuvastatin Calcium 5 MG Tablet Oral Taking amLODIPine Besylate 10 MG Tablet Oral Taking Lisinopril 20 MG Tablet Oral Taking Vraylar 6 MG Capsule 1 capsule Orally Once a day Medication List reviewed and reconciled with the patient * Allergies: P enicillins: Allergy - Onset Date 01/22/2023no[Allergies Verified] Objective: * Vitals: B P:145/97mm Hg, HR:105/min, Wt:280.0lbs, Wt-k.01 kg, Ht: 73.00 in, Ht-cm: 185.42 cm, BMI:36.94Index, Body Surface Area: 2.56. * Examination: P sychiatry: Separation from caregiver during interview process: s on present. Abnormal body movements: t remors, hand movements, shakes legs, feet. G eneral Examination: - Mental Status Examination: - Mood described as okay. - Denies depression. - Denies hallucinations. - Denies manic symptoms. - Cognitive function intact as evidenced by ability to count backwards from 20 and recite days of the week backwards without error. - Physical Examination: - Neurological: Patient reports tremors, currently managed with propranolol. - Dental: Reports needing dental consultation. - No reported issues with dentures, cheek or tongue biting, or excessive blinking. - No abnormal involuntary movements noted in the facial region; tremors noted primarily in hands and feet. Assessment: * Assessment: 1. B ipolar disorder, in partial remission, most recent episode hypomanic - F31.71 (Primary)? 2. O ther nursing home (current) drug therapy - Z79.899 3 . D rug induced subacute dyskinesia - G24.01 1. Mood stability:- Patient reports no recent depressive or manic symptoms.- Continue current medications, including Vraylar.2. Tremors:- Patient is currently taking propranolol for tremors.- No changes to propranolol at this time.3. Tardive dyskinesia:- Patient experiences abnormal movements, primarily in hands and feet.Plan:- Start Ingrezza for tardive dyskinesia management.- Schedule follow- up in 6 to 8 weeks to assess the effectiveness of Ingrezza.4. Blood pressure management:- Patient was switched from amlodipine to propranolol for blood pressure control and tremors.Plan:- Continue propranolol and monitor blood pressure.5. Dental health:- Patient reports needing to see a dentist.Plan:- Encourage patient to schedule a dental appointment for evaluation and treatment as needed.6. Cognitive function:- Patient demonstrated intact cognitive function during the visit by counting backward from 20 and reciting the days of the week backward.- No further assessment or intervention needed at this time. Plan: * Treatment: 2. D rug induced subacute dyskinesia Start Ingrezza Capsule, 40 MG, 1 capsule, Orally, Once a day, 7 days, 7 Capsule, Refills 0, Notes to Pharmacist: samples given; S tart Ingrezza Capsule, 80 MG, 1 capsule, Orally, Once a day, 30 days, 30, Refills 3. Notes: tried Austedo, felt it didn't work * Procedure Codes: 9 6127 BEHAV ASSMT W/SCORE & DOCD/STAND [id number] VISIT COMPLEXITY INHERENT TO ONGOING CARE RELATED TO A PATIENT'S SINGLE, SERIOUS CONDITION OR A COMPLEX CONDITION * Follow Up: 6 Weeks (Reason: f/u tardive dyskinesia) * Billing Information: * Visit Code: 12547 OFFICE OUTPATIENT VISIT 25 MINUTES DETAILED HISTORY AND EXAM/MODERATE MEDICAL DECISION MAKING. * Procedure Codes: 63830 BEHAV ASSMT W/SCORE & DOCD/STAND INSTRUMENT. G2211 VISIT COMPLEXITY INHERENT TO ONGOING CARE RELATED TO A PATIENT'S SINGLE, SERIOUS CONDITION OR A COMPLEX CONDITION. * CTOR WORKERS COMPENSATION Sign off status: Completed true * Provider: BRIAN SLATER Date: 04/09/2023 Generated for Florian rodriguez/Mica/Christiano on: 0 05/15/2024 12:02 PM DIRECTOR WORKERS COMPENSATION History and Physical Notes * HPI (History of Present Illness) Category Sub-Category Detail Notes Category Not es History of Presenting Problem Sleep disturbance stable Psychosis no hallucinations hx hallucinations Depression screening PHQ-9 Little inte rest or pleasure in doing things: Not at all Feeling down, depressed, or hopeless: No t at all Trouble falling or staying asleep, or sl eeping too much: Not at all Feeling tired or having little energy: N ot at all Poor appetite or overeating: Not at all Feeling bad about yourself o r that you are a failure, or have let yourself or your family down: Not at all Trouble concentrating on thi ngs, such as reading the newspaper or watching television: Not at all Moving or speaking so slowly that other people could have noticed; or the opposite, being so fidgety or restless that you have been moving around a lot more than usual: Not at all Thoughts that you would be b ranjith off or of hurting yourself in some way: Not at all Total Score: 0 Intervention Depression Screening Findings: N egative Suicide Risk Assessment Performed: 11/15 /2024 Depression Screening DONALD-7 (2018 Edition) Feelin g nervous, anxious, or on edge: Not at all Not being able to stop or control worryi ng: Not at all Worrying too much about different things : Not at all Trouble relaxing: Not at all Being so restless that it is hard to sit still: Not at all Becoming easily annoyed or irritable: No t at all Feeling afraid as if something awful deanna ht happen: Not at all Total DONALD-7 Score: 0 If you checked any problems, how difficult have they made it for you to do your work, take care of things at home, or get along with other people?: Not difficult at all Interpretation of Total: (0 to 4) No Anx iety Examination Category Sub-Category Detail Notes Category Not es Psychiatry Abnormal body movements: tremors , hand movements, shakes legs, feet Separation from caregiver during intervi ew process: son present General Examination - Mental Status Examination: - Mood described as okay. - Denies depression. - Denies hallucinations. - Denies manic symptoms. - Cognitive function intact as evidenced by ability to count backwards from 20 and recite days of the week backwards without error. - Physical Examination: - Neurological: Patient reports tremors, currently managed with propranolol. - Dental: Reports needing dental consultation. - No reported issues with dentures, cheek or tongue biting, or excessive blinking. - No abnormal involuntary movements noted in the facial region; tremors noted primarily in hands and feet.
--- OUTSIDE RECORDS SUMMARY | 2024-05-15 12:03 | XMS_ITS ---
Author Organization [facility] [employer] Address [address] [facility] [address] [place] [address] Care Team Providers Care Bander Operator Name Role Phone Lincoln Ennis Unavailable [phone] REASON FOR VISIT Other Social History Sex Assigned At : Social History Observation Description Sex Assigned At Female Encounters Encounter Location Date Provider Diagnosis [facility] [address] [facility] [address] [address] 02/13/2024 Lincolnzena Ennis Bipolar disorder, in partial remission, most recent episode hypomanic F31.71 Assessments Encounter Date Diagnosis (ICD Code) Assessment Notes Treatment Notes Treatment Clinical Notes Section Notes 02/13/2024 Bipolar disorder, in partial remission, most recent episode hypomanic (ICD-10 - F31.71) Electronic Prior Authorization was requested for Ingrezza 40 MG Capsule. Provider can order medication once approval received. Plan Of Treatment Treatment Notes Assessment Notes Bipolar disorder, in partial remission, most recent episode hypomanic Electronic Prior Authorization was reque sted for Ingrezza 40 MG Capsule. Provider can order medication once approval received. Progress Notes * OLAYINKA MILLERDOB:1955 ( 68 yo M)Acc No.[id number]:02/13/2024 Patient: OLAYINKA SCOTT :1955 A ge:68 Y S ex:Male Address:[address] [place] [address], [address] Subjective: * Chief Complaints: * O ther * Medical History: * Surgical History: * Hospitalization/Major Diagno stic Procedure: * Medications: Objective: * Vitals: * Physical Examination: Assessment: * Assessment: 1. B ipolar disorder, in partial remission, most recent episode hypomanic - F31.71 ? Plan: * Treatment: * Procedure Codes: * true * Date: Generated for Florian rodriguez/Mica/Christiano on: 0 05/15/2024 12:03 PM HEAD TENNIS COACH
--- OUTSIDE RECORDS SUMMARY | 2024-05-15 12:03 | XMS_ITS | Patient Health Summary ---
Author Organization [facility] Address [address] [place] [address] Care Team Providers Care Burglar Alarm Installer Name Role Phone Unavailable Primary Care Provider Unavailabl e Note from [facility],non-owned Affiliates and Associated Physician Practices is amultiple site organization consisting of ambulatory clinics and hospital sitesin [place], [place], [place] and [place]. This disclosure is being madepursuant to the Care Everywhere program and may not contain all information available regarding this patient. Last updated 17.[facility] Allergies * Penicillins(Urticaria) -Low Criticality Medications Be aware that medications may not [...] Mass Index 24.73 11/19/2014 2:24 PM CDT Procedures * DERMATOPATHOLOGY(Performed 04/06/2015) Results * PATHOLOGY TISSUE FOR DERMATOLOGY (04/06/2015 12:00 AM VARNISH MAKER HELPER) Result CASE: [id number] PATIENT: OLAYINKA MILLER PATHOLOGIC DIAGNOSIS: A. Left lateral cathus: BASAL CELL CARCINOMA, NODULAR TYPE PRESENT AT MARGIN B. Left forearm: BASAL CELL CARCINOMA, NODULAR TYPE PRESENT AT MARGIN C. Left hand ulnar: HYPERPLASTIC (HYPERTROPHIC) ACTINIC KERATOSIS NOT PRESENT AT SAMPLED MARGIN D. Left hand thenar: HYPERPLASTIC (HYPERTROPHIC) ACTINIC KERATOSIS PRESENT AT MARGIN E. Right hand: HYPERPLASTIC (HYPERTROPHIC) ACTINIC KERATOSIS PRESENT AT MARGIN CLINICAL DATA: A-E: BCC vs. SCC vs HAK; pink crusted papule. Check margins. GROSS DESCRIPTION: A: Received is one formalin filled container labeled with the patients name and designated left lateral canthus. The specimen consists of a shave measuring [id number]. The margins are inked in green. Jar 0. B: Received is one formalin filled container labeled with the patients name and designated left forearm. The specimen consists of a shave measuring [id number]. The margins are inked in green. Jar 0. C: Received is one formalin filled container labeled with the patients name and designated left hand ulnar. The specimen consists of a shave measuring [id number]. The margins are inked in green. Jar 0. D: Received is one formalin filled container labeled with the patients name and designated left hand thenar. The specimen consists of a shave measuring [id number]. The margins are inked in green. Jar 0. E: Received is one formalin filled container labeled with the patients name and designated right hand. The specimen consists of a shave measuring [id number]. The margins are inked in green. Jar 0. MICROSCOPIC DESCRIPTION: SPECIMEN A Within the dermis there are aggregates of basaloid cells with a high nuclear to cytoplasmic ratio and peripheral palisading. Lesion is present at the margin of the specimen. SPECIMEN B Within the dermis there are aggregates of basaloid cells with a high nuclear to cytoplasmic ratio and peripheral palisading. Lesion is present at the margin of the specimen. SPECIMEN C There is hyperkeratosis alternating with parakeratosis. There is epidermal hyperplasia with disorderly maturation of keratinocytes with nuclear pleomorphism confined to the lower half of the epidermis. This lesion is not present at the sampled margin of the specimen. SPECIMEN D There is hyperkeratosis alternating with parakeratosis. There is epidermal hyperplasia with disorderly maturation of keratinocytes with nuclear pleomorphism confined to the lower half of the epidermis. Lesion is present at the margin of the specimen. SPECIMEN E There is hyperkeratosis alternating with parakeratosis. There is epidermal hyperplasia with disorderly maturation of keratinocytes with nuclear pleomorphism confined to the lower half of the epidermis. Lesion is present at the margin of the specimen. Electronically signed out by Petra Waters M.D. 04/08/2015 4:35:20PM [facility] Comment: Performed at: Dermatopathology Laboratory [facility] - Department of Dermatology [address] [place] [address] 5th [place] [address] Phone number: [phone] FAX: [phone] 04/06/2015 04/07/2015 Miguelina Gomez MD LAB - PATHOLOGY/CYTO LOGY ORDERABLES [facility] [address] [place] [address]. [facility] [place] [address], [facility] [phone]
--- OUTSIDE RECORDS SUMMARY | 2024-05-15 12:03 | XMS_ITS | Encounter Summary ---
Author Organization [facility] Address [address] [place] [address] Care Team Providers Care Pediatric Physical Therapist Name Role Phone Braeden Dubon MD Primary Care Provider [phone] Lincoln Ennis PERCUSSION WELDING MACHINE OPERATOR Unavailable [phone] Tiesha Caban PERCUSSION WELDING MACHINE OPERATOR Unavailable Encounter Details Date Type Department Care Team (Late st Contact Info) Description 05/12/2024 Results Follow-Up [facility] Primary Care at [address] [address] Braeden Dubon MD [address] [facility] [address] [place] [address] Social History Tobacco Use Types Packs/Day Years Used Date Smoking Tobacco: Never Smokeless Tobacco: Never PHQ-2 Answer Date Recorded PHQ-2 Total Score (If total score is 3 or more points, staff should administer the PHQ-9) 0 05/08/2024 Sex and Gender Information Value Date Recorded Sex Assigned at Not on file Legal Sex Male 10:42 AM CONSTRUCTION MGR Gender Identity Not on file Sexual Orientation Not on file documented as of this encounter Plan of Treatment Not on file documented as of this encounter Visit Diagnoses Not on filedocumented in this encounter Care Teams Pediatric Physical Therapist Relationship Specialty Start Date End Date Braeden Dubon MD [address] [facility] [address] [place] [address] PCP - General Family Medicine 01/09/24 Lincoln Ennis, MARY [address] [place] [address] Nurse Practitioner Nurse Practitioner 01/09/24 Tiesha Caban NP [address] [place] [place] [address] Nurse Practitioner 01/09/24 documented as of this encounter
--- NOTE | 2024-06-09 12:03 | P.SLEEP_ITS ---
Sleep Study Date of Study: 05/15/24 Ordering Provider: Santosh Brewster, ASSISTANT RESTAURANT GENERAL MANAGER Interpreting Physician: Haleigh Melton, DO Sleep Study Type: Polysomnogram Height: 1.85 m Weight: 131.995 kg Body Mass Index: 38.4 Neck Circumference (inches): 20.5 Flom: 7 Reason for Sleep Study Daytime hypersomnia Sleep History The patient is a 68-year-old male that had a sleep study ordered by his ENT for evaluation of sleep apnea. The patient occasionally awakens from sleep short of breath. He denies awakening at night with heartburn, belching or cough. He denies snoring. He denies having trouble sleeping when he has a cold. He denies waking up gasping for air throughout the night. He denies having breathing problems at night observed by himself or others. He denies sweating excessively at night. He denies having heart palpitations or irregular heartbeats during the night. He occasionally falls asleep during the day but rarely while driving. He denies sleep paralysis, cataplexy and hypnagogic/ hypnopompic hallucinations. He denies having trouble at school or work due to sleepiness. He denies feeling afraid of going to sleep. He rarely has nightmares. He denies remembering his dreams. He rarely has thoughts racing through his mind. He rarely feels sad or depressed. He rarely has anxiety. He denies having muscular tension. He constantly has a spasm in his right hand. He rarely kicks during the night. He denies having crawling and aching feelings in his legs and denies having leg pain during the night. He denies grinding his teeth during sleep and denies awakening with morning jaw pain. He is rarely bothered by pain during the day but never awakened by pain during the night. He denies waking up feeling stiff in the morning. He denies waking up with sore or achy muscles. He denies waking up with pain in the neck, spine and other joints. He goes to bed at 8:30 p.m. on both weekdays and weekends. It takes him 20 minutes to fall asleep. He wakes up 5 times throughout the night to urinate and check the TV. He is able to fall back asleep within 10 minutes. He wakes up between 6-9 a.m. on both weekdays and weekends. He typically gets 8 hours of sleep per night. He does not stay in bed after waking up in the morning. He currently lives alone. He will occasionally has a caffeinated beverage within 2 hours of bedtime. He denies engaging in physical exercise before bedtime. He denies reading before falling asleep. He will watch television before falling asleep. He will occasionally take naps in afternoon or the evening that are refreshing. He has 1 caffeinated beverage a few times per week. He denies tobacco, alcohol and recreational drug use. [facility] Past Medical History Medical History Depression Bipolar disorder Anxiety History of skin cancer Hypertension Social History Social History Smoking status: Never smoker Alcohol intake: former Alcohol use details: SOCIAL DRINKER IN PAST Substance use: never Living arrangements: with family Additional living arrangements comments: SON Spiritual care concerns: No Medications Home Medications ?Medication ?Instructions ?Recorded ?Confirmed ?Type amlodipine 10 mg tablet 10 mg PO QAM 07/27/20 08/05/20 History cariprazine 6 mg capsule (Vraylar) 6 mg PO DAILY 07/27/20 08/05/20 History lisinopril 20 mg tablet 20 mg PO QAM 07/27/20 08/05/20 History propranolol 40 mg tablet 80 mg PO BID 07/27/20 08/05/20 History quetiapine 50 mg tablet 50 mg PO HS 07/27/20 08/05/20 History doxycycline hyclate 100 mg capsule 100 mg PO DAILY #7 caps 08/05/20 Rx tramadol 50 mg tablet 50 - 100 mg (1 - 2 x 50 mg) PO Q6H 08/05/20 Rx PRN pain #8 tabs cephalexin 500 mg capsule 500 mg PO Q12H #14 caps 11/19/23 11/19/23 Rx Sleep Procedure A full night polysomnogram using the [employer] multi-channel system recorded the standard physiologic parameters including EEG, EOG, submentalis EMG, anterior tibialis EMG, EKG, body position, nasal and oral airflow using nasal pressure sensor and thermistor.? Respiratory parameters of chest and abdominal movements were recorded with Respiratory Inductance Plethysmography belts. Oxygen saturation was recorded by pulse oximetry. Video monitoring was also performed. Sleep stages, periodic limb movements, and EEG arousals were scored in 30 second epochs according to the criteria of the AASM Scoring Manual. The Apnea-Hypopnea Index was calculated using [facility] guidelines for definition of hypopnea with 4% O2 desaturations while scoring respiratory events. Sleep Architecture The total recording time was 264.0 minutes.? The total sleep time was 43.0 minutes. Sleep latency was 29.6 minutes. REM sleep was not achieved during this study. Sleep efficiency was 16.3%. The patient had 11 awakenings for an awakening index of 15.3. Wake after sleep onset time was 191.0 minutes. The patient spent 10.5 minutes, 24.4% of total sleep time in Stage N1. The patient spent 32.5 minutes, 75.6% in Stage N2. The patient spent 0.0 minutes, 0.0% in Stage N3. The patient spent 0.0 minutes, 0.0% in Stage REM sleep. Respiratory Analysis The patient had 17 hypopneas, 31 obstructive apneas, 6 mixed apneas, and 5 central apneas for an overall Apnea Hypopnea Index of 79.5. The REM Apnea Hypopnea Index was 0. The NREM Apnea Hypopnea Index was 79.5. The patient had a Central Apnea Hypopnea Index of 7.0. There was no evidence of Gary-Schilling Respirations. Arousals There were 16 total arousals for an arousal index of 22.3. There were 4 spontaneous arousals for an index of 5.6. There were 7 arousals due to respiratory events for an index of 9.8. There was 1 arousal due to periodic limb movements for an index of 1.4.? There were 2 arousals due to isolated limb movements for an index of 2.8. Periodic Limb Movements The patient had 18 isolated limb movements with an index of 25.1. The patient had 60 periodic limb movements with an index of 83.7, which is elevated (normal < 15). Patient had a total of 78 limb movements with a total limb movement index of 108.8. Oximetry Data The patient had an average oxygen saturation of 92.5% in sleep with a minimum oxygen saturation of 87.0% and a maximum oxygen saturation of 96.0%. The patient had 36 oxygen desaturations that were 4% or greater resulting in an Oxygen Desaturation Index of 50.2.? The patient spent 1.4 minutes, 0.6% of total sleep time with an oxygen saturation below 88%. Snoring Profile Mild snoring was present throughout the study. Cardiac Profile The EKG showed normal sinus rhythm.?No arrhythmias or PVCs were seen. The patient had an average pulse rate of 64.0 bpm with a minimum pulse of rate of 52.0 bpm and a maximum pulse rate of 77.0 bpm.? EEG Profile No signs of seizure activity seen. Assessment and Plan Assessment and Plan (1) NOEL (obstructive sleep apnea): Code(s): G47.33 - Obstructive sleep apnea (adult) (pediatric) Status: Acute Assessment and Plan: The patient had an overall AHI of 79.5 with desaturation down to 87%. This is consistent with extremely severe sleep apnea. While the overall AHI was hyperinflated due to the limited total sleep time during the study,, the patient was having respiratory events during wake which is seen in more severe cases of sleep apnea. The patient had a central apnea index of 7.0, which is elevated (normal <5). Due to the severity of the patient's sleep apnea and the elevated central apnea index, the patient is not a candidate for AutoPAP. AutoPAP can increase the severity and frequency of central apneas. I recommend the patient have a CPAP titration study with the use of a hypnotic (Lunesta 2-3 mg or Ambien 10 mg) to ensure we obtain enough sleep data and find an optimal pressure setting. The patient did leave the sleep lab at 2:45 a.m. AMA but we were able to get enough sleep data. Data The data obtained during this sleep study is adequate for interpretation with consideration of the decreased total sleep time. Certification This sleep study has been reviewed by a board certified sleep medicine physician.
[2024-06-09 12:18] VITALS: BMI 38.4
== END 2024-05-16 04:35 | disposition home or self-care (01) ==
PROVIDERS: PCP Family Medicine; Visit Provider Nurse Practitioner Family
DX: G47.33 Obstructive sleep apnea (adult) (pediatric) (principal)
CPT/HCPCS: 95810

== ENCOUNTER 2024-07-17 09:03 | Outpatient (CLI) | payer MEDICARE, SELFPAY ==
--- OUTSIDE RECORDS SUMMARY | 2024-07-17 09:50 | XMS_ITS | Clinical Summary ---
Author Organization [facility] Address [address] [place] [address] Care Team Providers Care Prison Teacher Name Role Phone Braeden Dubon MD Primary Care Provider Lincoln Ennis RN CONCURRENT REVIEW Unavailable [phone] Tiesha Caban RN CONCURRENT REVIEW Unavailable Allergies Active Allergy Reactions Criticality Noted Date Comments Penicillins Urticaria Medium 11/19/2014 Medications fluorouraciL (EFUDEX) 5 % cream PLEASE SEE ATTACHED FOR DETAILED DIRECTIONS 4 Active propranolol LA (INDERAL LA) 60 mg 24 hr capsuleIndications :Essential tremor Take 1 capsule (60 mg total) by mouth daily 90 capsule 3 4 025 Active rosuvastatin (CRESTOR) 5 mg tabletIndications: Mixed hyperlipidemia Take 1 tablet (5 mg total) by mouth daily 90 tablet 3 4 025 Active lisinopriL (PRINIVIL,ZESTRIL) 20 mg tabletIndications: Essential hypertension Take 1 tablet (20 mg total) by mouth daily 90 tablet 3 4 025 Active finasteride (PROSCAR) 5 mg tablet Take 1 tablet (5 mg total) by mouth daily 5 Active triamcinolone (KENALOG) 0.1 % cream APPLY TWICE A DAY FOR NO LONGER THEN 2 WEEKS NEEDED TO LOWER LEGS DIRECTED 5 Active Active Problems Problem Noted Date Diagnosed Date Benign prostatic hyperplasia with urinary hesita ncy 05/08/2024 Class 2 obesity due to exces s calories without serious comorbidity with body mass index (BMI) of 37.0 to 37.9 in adult 02/19/2024 Assessment & Plan (02/19/2024 9:50 AM BUSINESS SALES CONSULTANT): BMI Follow-up includes: nutrition counseling, exercise counseling, [...] Department Care Team Description 05/12/2024 Results Follow-Up [facility] Primary Care at [address] [address] Braeden Dubon MD 05/08/2024 12:01 PM BUSINESS SALES CONSULTANT - 05/08/2024 11:59 PM BUSINESS SALES CONSULTANT Hospital Encounter [address] [address] Mixed hyperlipidemia Discharge Disposition: Discharge to home or self care 05/08/2024 12:00 PM BUSINESS SALES CONSULTANT Lab [facility] Outpatient Lab at [address] [phone] Essential hypertension (Primary Dx) 05/08/2024 11:30 AM BUSINESS SALES CONSULTANT Office Visit [facility] Primary Care at [address] [phone] Braeden Dubon MD Essential hypertension (Primary Dx); Mixed hyperlipidemia; Benign prostatic hyperplasia with urinary hesitancy; Severe obesity (HCC); Sleep disorder, unspecified 04/18/2024 Telephone [facility] Primary Care at [address] [address] Giuliana Summers MA from Last 3 Months Immunizations Immunization Administration [...] on file Legal Sex Male 10:42 AM BUSINESS SALES CONSULTANT Gender Identity Not on file Sexual Orientation Not on file Obstetrics History Last Filed Vital Signs Vital Sign Reading Time Taken Comments Blood Pressure 126/80 05/08/2024 11:28 AM BUSINESS SALES CONSULTANT Pulse 84 05/08/2024 11:28 AM BUSINESS SALES CONSULTANT Temperature 36.1 C (96.9 F) 05/08/2024 11:28 AM BUSINESS SALES CONSULTANT Respiratory Rate 18 05/08/2024 11:28 AM BUSINESS SALES CONSULTANT Oxygen Saturation 97% 05/08/2024 11:28 AM BUSINESS SALES CONSULTANT Inhaled Oxygen Concentration - - Weight 132 kg (291 lb) 05/08/2024 11:28 AM BUSINESS SALES CONSULTANT Height 185.4 cm (6' 1 ) 05/08/2024 11:28 AM BUSINESS SALES CONSULTANT Body Mass Index 38.39 05/08/2024 11:28 AM BUSINESS SALES CONSULTANT Plan of Treatment Health Maintenance Due Date [...] Comments LIPID PANEL Routine 05/08/2024 12:01 PM BUSINESS SALES CONSULTANT Mixed hyperlipidemia HEPATITIS C ANTIBODY Routine 01/09/2024 10:42 AM CDT Encounter for hepatitis C screening test for low risk patient PSA SCREEN Routine 01/09/2024 10:42 AM CDT Elevated PSA, between 10 and less than 20 ng/ml from Last 3 Months or Most Recently Relevant to Health Maintenance Results * (ABNORMAL) Lipid panel (05/08/2024 12:01 PM BUSINESS SALES CONSULTANT) Cholesterol 216(H) 30 - 199 mg/dL Comment: [...] NCEP Expert Panel. Circulation 2004;110:227 3. Shady Vazquez et al. STACIA Cardiol. 2019July 24;5(5):540-548. doi: 10.1001/jamacardio.2020.0013 Current Interpretive Data was last revised on 2023. Non-HDL Cholesterol 175 mg/dL VIRAL Comment: Interpretive Data Ages < [...] 5 VIRAL Blood 05/08/2024 12:0 1 PM BUSINESS SALES CONSULTANT 05/08/2024 9:04 PM BUSINESS SALES CONSULTANT us Braeden Dubon MD LAB BLOOD ORDERABLES Final Result Performing Organization Address [facility] [place] [address] [address] [facility] [place] [address] * (ABNORMAL) PSA screen (01/09/2024 10:42 AM [...] BLOOD ORDERABLES Final Result Performing Organization Address [facility] [place] [address] [address] [facility] [place] [address] * Hepatitis C antibody Blood (01/09/2024 10:42 [...] LAB MICROBIOLOGY - GENERAL [place] [address] [address] Department of Laboratories [place], [place] [phone] from Last 3 Months or Most Recently Relevant to Health Maintenance Insurance MEDICARE MEDICARE MEDICARE Care Teams Prison Teacher Relationship Specialty Start Date End Date Braeden Dubon MD [address] [place] [address] PCP - General Family Medicine 01/09/24 Lincoln Ennis NP [address] [place] [address] Nurse Practitioner Nurse Practitioner 01/09/24 Tiesha Caban NP [address] [place] [address] Nurse Practitioner 01/09/24
--- OUTSIDE RECORDS SUMMARY | 2024-07-17 09:50 | XMS_ITS | Clinical Summary ---
Author Organization [facility] Address [address] [place] [address] Care Team Providers Care Vegetable Farm Manager Name Role Phone None, Provider Primary Care [...] Colonoscopy (10 Years) 1954 Hepatitis C 1972 Pneumococcal Vaccine: 50+ Ye ars (1 of 1 - PCV) 2004 Zoster Vaccines (1 of 2) 2004 DTaP, Tdap and Td Vaccines ( 1 - Tdap) 04/03/2006 04/02/2006 COVID-19 Vaccine ( - 2023-2 5 season) 2023 RSV Immunization or 60+ Years (1 - [...] age to complete this topic Care Teams Vegetable Farm Manager Relationship Specialty Start Date End Date None, Provider, PCP - General 01/03/19
--- OUTSIDE RECORDS SUMMARY | 2024-07-17 09:50 | XMS_ITS | CONTINUITY OF CARE DOCUMENT ---
Author Name josue salas Address Unknown Organization [facility] Address [address] [facility] [address] [place] [address] Phone [phone] Care Team Providers Care Housekeeping Director Name Role Phone Ronald GARCES, Prashant Unavailable SHARIF GAXIOLA MD Unavailable [phone] SHARIF GAXIOLA MD Unavailable [phone] INSURANCE PROVIDERS Payer name Policy type / Coverage type Eli red alliance party ID [facility]N [facility] Face to Face Live insurance Here On Biz [id number]
--- OUTSIDE RECORDS SUMMARY | 2024-07-17 09:50 | XMS_ITS | Patient Health Record ---
Author Organization [facility] Address [address] [place] [address] Care Team Providers Care Direct Mail Coordinator Name Role Phone Lincoln Ennis Unavailable [phone] Migration, Provider Unavailable Unavailable Allergies Allergen (clinical [...] Vraylar 6 MG TAKE 1 CAPSULE BY [facility] EVERY DAY FOR 30 DAYS for 30 Active amLODIPine Besylate 10 MG Oral 04/23/2023 Active Rosuvastatin Calcium 5 MG Oral 04/23/2023 Active Immunizations Vaccine Route Administration Date Status Comme nts Influenza virus vaccine, quadrivalent (IIV4), split virus, 0.25 mL dosage Unknown 12/24/2018 Administered Novel [id number], preservative free Unknown 01/15/2020 Administered Pfizer Biontech [...] Status Risk Notes Problem Bipolar I disorder ([id number]) Bipolar disorder, in partial remission, most recent episode hypomanic (F31.71) Active confirmed Vital Signs Heart Rate 105 /min 02/08/2024 Height-cm 185.42 cm 02/08/2024 Blood pressure diastolic 97 mm Hg 02/08/2024 Weight-kg 127.01 kg 02/08/2024 Height 73.00 in 02/08/2024 Blood pressure systolic 145 mm Hg 02/08/2024 Weight 280.0 lbs 02/08/2024 BMI 36.94 kg/m2 02/08/2024 Encounters Encounter Location Date Provider Diagnosis [facility] [employer] [place] [id number] [address] 10/19/2023 Lincoln Ennis Bipolar disorder, in partial remission, most recent episode hypomanic F31.71 ; Other dedicated intermodal truck driver (current) drug therapy Z79.899 and Drug induced subacute dyskinesia G24.01 [facility] [place] [address] [address] 02/08/2024 Lincoln Ennis Bipolar disorder, in partial remission, most recent episode hypomanic F31.71 ; Other dedicated intermodal truck driver (current) drug therapy Z79.899 and Drug induced subacute dyskinesia G24.01 [facility] [address] [address] 08/11/2023 Provider Migration [facility] [place] [address] [address] 08/12/2023 Provider Migration [facility] [employer] [address] 10/30/2023 Lincoln Ennis Bipolar disorder, in partial remission, most recent episode hypomanic F31.71 [facility] [place] [address] [address] 02/13/2024 Lincoln Ennis Bipolar disorder, in partial remission, most recent episode hypomanic F31.71 Assessments Encounter Date Diagnosis (ICD Code) Assessment Notes Treatment Notes Treatment Clinical Notes Section Notes 10/19/2023 Bipolar disorder, in partial remission, most [...] anxiety with their primary care provider. 10/19/2023 Other dedicated intermodal truck driver (current) drug therapy (ICD-10 - Z79.899) 1. [...] can order medication once approval received. 02/08/2024 Other dedicated intermodal truck driver (current) drug therapy (ICD-10 - Z79.899) 1. [...] assessment or intervention needed at this time. 02/13/2024 Bipolar disorder, in partial remission, most recent episode hypomanic (ICD-10 - F31.71) Electronic Prior Authorization was requested for Ingrezza 40 MG Capsule. Provider can order medication once approval received. 10/19/2023 Drug induced subacute dyskinesia (ICD-10 - [...] anxiety with their primary care provider. 02/08/2024 Drug induced subacute dyskinesia (ICD-10 - [...] Date Medicare-I l Medicare [address] [place] [address] [id number] OLAYINKA MILLER Self - patient is the insured Medical (General) History Medical History History ICD Code Problems: Altered mental status Bipolar disorder Edema of lower extremity Long-term current use of drug therapy Manic bipolar I disorder in partial jason ssion Neuroleptic-induced tardive dyskinesia Parkinsonian tremor Persistent insomnia Psychotic disorder ,
--- OUTSIDE RECORDS SUMMARY | 2024-07-17 09:50 | XMS_ITS | Referral Summary ---
Author Organization [facility] Address [address] [place] [address] Care Team Providers Care Optimization Engineer Name Role Phone Braeden Dubon MD Primary Care Provider Lincoln Ennis WAREHOUSE FOREMAN Unavailable [phone] Tiesha Caban WAREHOUSE FOREMAN Unavailable Encounters Date Type Department Care Team Description 05/12/2024 Results Follow-Up [facility] Primary Care at [address] [address] Braeden Dubon MD 05/08/2024 12:01 PM SIZE MIXER - 05/08/2024 11:59 PM SIZE MIXER Hospital Encounter [address] [address] Mixed hyperlipidemia Discharge Disposition: Discharge to home or self care 05/08/2024 12:00 PM SIZE MIXER Lab [facility] Outpatient Lab at [address] [phone] Essential hypertension (Primary Dx) 05/08/2024 11:30 AM SIZE MIXER Office Visit [facility] Primary Care at [address] [address] Braeden Dubon MD Essential hypertension (Primary Dx); Mixed hyperlipidemia; Benign prostatic hyperplasia with urinary hesitancy; Severe obesity (HCC); Sleep disorder, unspecified 04/18/2024 Telephone [facility] Primary Care at [address] [address] Giuliana Summers MA from Last 3 Months Allergies Active Allergy [...] 02/19/2024 Assessment & Plan (02/19/2024 9:50 AM SIZE MIXER): BMI Follow-up includes: nutrition counseling, exercise counseling, [...] on file Legal Sex Male 10:42 AM SIZE MIXER Gender Identity Not on file Sexual Orientation Not on file Last Filed Vital Signs Vital Sign Reading Time Taken Comments Blood Pressure 126/80 05/08/2024 11:28 AM SIZE MIXER Pulse 84 05/08/2024 11:28 AM SIZE MIXER Temperature 36.1 C (96.9 F) 05/08/2024 11:28 AM SIZE MIXER Respiratory Rate 18 05/08/2024 11:28 AM SIZE MIXER Oxygen Saturation 97% 05/08/2024 11:28 AM SIZE MIXER Inhaled Oxygen Concentration - - Weight 132 kg (291 lb) 05/08/2024 11:28 AM SIZE MIXER Height 185.4 cm (6' 1 ) 05/08/2024 11:28 AM SIZE MIXER Body Mass Index 38.39 05/08/2024 11:28 AM SIZE MIXER Plan of Treatment Not on file Procedures Procedure Name Priority Date/Time Associated Diagnosis Comments LIPID PANEL Routine 05/08/2024 12:01 PM SIZE MIXER Mixed hyperlipidemia HEPATITIS C ANTIBODY Routine 01/09/2024 10:42 AM CDT Encounter for hepatitis C screening test for low risk patient PSA SCREEN Routine 01/09/2024 10:42 AM CDT Elevated PSA, between 10 and less than 20 ng/ml from Last 3 Months or Most Recently Relevant to Health Maintenance Results * (ABNORMAL) Lipid panel (05/08/2024 12:01 PM SIZE MIXER) Cholesterol 216(H) 30 - 199 mg/dL Comment: [...] last revised on 2017. Chol/HDL ratio [address] [facility] Blood 05/08/2024 12:0 1 PM SIZE MIXER 05/08/2024 9:04 PM SIZE MIXER Braeden Dubon MD LAB BLOOD ORDERABLES Final Result Performing Organization Address [facility] Phone Number VIRAL [address] [place] [address] * (ABNORMAL) PSA screen (01/09/2024 10:42 AM [...] 2 AM CDT 01/09/2024 3:18 PM CDT Result [facility] Braeden Dubon MD LAB BLOOD ORDERABLES Final Result Performing Organization Address [facility] de Phone Number [facility] [address] [place] [address] * Hepatitis C antibody Blood (01/09/2024 10:42 [...] GENERAL ORDERABLES Final Result Performing Organization Address City/State[place]IP [place] Phone Number VIRAL [address] [facility] Department [place] [address] from Last 3 Months or Most Recently Relevant to Health Maintenance Insurance MEDICARE MEDICARE MEDICARE Care Teams Optimization Engineer Relationship Specialty Start Date End Date Braeden Dubon MD [address] [facility] [place], [place] [id number] PCP - General Family Medicine 01/09/24 Lincoln Ennis NP [address] [place] [address] Nurse Practitioner Nurse Practitioner 01/09/24 Tiesha Caban NP [address] [place] [address] Nurse Practitioner 01/09/24
--- OUTSIDE RECORDS SUMMARY | 2024-07-17 09:50 | XMS_ITS | Encounter Summary ---
Author Organization [facility] Address [address] [place] [address] Care Team Providers Care Combat Control Manager Name Role Phone Unavailable Primary Care Provider Unavailabl e Encounter Details Date Type Department Care Team (Late st Contact Info) Description 10/10/2012 [facility] Outpatient Visit EXTERNAL NON-[facility] DEPT Ventura Colunga DO [address] [place] [id number] Social History Tobacco Use Types Packs/Day Years Used Date Smoking Tobacco: Never Alcohol Use Standard Drinks/Week Comments Yes 0 (1 standard drink = 0.6 oz pur e alcohol) moderate/ socially Sex and Gender Information Value Date Recorded Sex Assigned at Not on file Legal Sex Male 2:31 PM CDT Gender Identity Not on file Sexual Orientation Not on file documented as of this encounter Plan of Treatment Not on file documented as of this encounter Visit Diagnoses Not on filedocumented in this encounter
--- OUTSIDE RECORDS SUMMARY | 2024-07-17 09:50 | XMS_ITS | Clinical Summary ---
Author Organization [facility] Address [address] [place] [address] Care Team Providers Care Furnace Unloader Name Role Phone Unavailable Primary Care Provider Unavailabl e Source Comments [facility],non-owned Affiliates and Associated Physician Practices is amultiple site organization consisting of ambulatory clinics and hospital sitesin [place], [place], [place] and [place]. This disclosure is being madepursuant to the Care Everywhere program and may not contain all information available regarding this patient. Last updated 17.[facility] Allergies Active Allergy Reactions Criticality Noted Date Comments Penicillins Urticaria Low 11/19/2014 Medications * Be aware that medications may not be [...] Health Maintenance Due Date Last Done Comments KIM (AGES 45-75) - COL ON CA SCREENING [...] VACCINE (1 - 2023-2 5 season) 2023 DEPRESSION SCREENING 03/26/2024 INFLUENZA VACCINE (Season Ended) 2024 Respiratory Syncytial Virus (RSV) Vaccine Pt: or [...] to complete this topic MENINGOCOCCAL (Group B) VACC INE SHARED DECISION-MAKING Aged Out No longer eligibl e based on patient's age to complete this topic MENINGOCOCCAL GROUPS A/C/Y/W VACCINE Aged Out No longer eligible b ased on patient's age to complete this topic Insurance MEDICARE MEDICARE SELF PAY NO INSURANCE Member Subscriber Plan / Payer (Ef fective for All Dates) Name:Olayinka Rubio Member ID:Not on file Relation to Subscriber:Not on file Name:OLAYINKA RUBIO Subscriber ID:Not on file (Home) Address: [address] [place] [address] Payer ID:Not on file Group ID:Not on file Type:Self Pay Address: [place], [place]
--- NOTE | 2024-08-11 19:07 | P.SLEEP_ITS ---
Sleep Study Date of Study: 07/17/24 Ordering Provider: Santosh Brewster, CONDUIT BENDER Interpreting Physician: Haleigh Melton DO Sleep Study Type: BiPAP Titration Height: 1.85 m Weight: 131.995 kg Body Mass Index: 38.4 Neck Circumference (inches): 20.5 [place]: 7 Reason for Sleep Study Polysomnogram on 05/15/2024 that showed an overall AHI of 79.5 with desaturation down to 87%. Sleep History The patient is a 68-year-old male that had a sleep study ordered by his ENT for evaluation of sleep apnea. The patient occasionally awakens from sleep short of breath. He denies awakening at night with heartburn, belching or cough. He denies snoring. He denies having trouble sleeping when he has a cold. He denies waking up gasping for air throughout the night. He denies having breathing problems at night observed by himself or others. He denies sweating excessively at night. He denies having heart palpitations or irregular heartbeats during the night. He occasionally falls asleep during the day but rarely while driving. He denies sleep paralysis, cataplexy and hypnagogic/ hypnopompic hallucinations. He denies having trouble at school or work due to sleepiness. He denies feeling afraid of going to sleep. He rarely has nightmares. He denies remembering his dreams. He rarely has thoughts racing through his mind. He rarely feels sad or depressed. He rarely has anxiety. He denies having muscular tension. He constantly has a spasm in his right hand. He rarely kicks during the night. He denies having crawling and aching feelings in his legs and denies having leg pain during the night. He denies grinding his teeth during sleep and denies awakening with morning jaw pain. He is rarely bothered by pain during the day but never awakened by pain during the night. He denies waking up feeling stiff in the morning. He denies waking up with sore or achy muscles. He denies waking up with pain in the neck, spine and other joints. He goes to bed at 8:30 p.m. on both weekdays and weekends. It takes him 20 minutes to fall asleep. He wakes up 5 times throughout the night to urinate and check the TV. He is able to fall back asleep within 10 minutes. He wakes up between 6-9 a.m. on both weekdays and weekends. He typically gets 8 hours of sleep per night. He does not stay in bed after waking up in the morning. He currently lives alone. He will occasionally has a caffeinated beverage within 2 hours of bedtime. He denies engaging in physical exercise before bedtime. He denies reading before falling asleep. He will watch television before falling asleep. He will occasionally take naps in afternoon or the evening that are refreshing. He has 1 caffeinated beverage a few times per week. He denies tobacco, alcohol and recreational drug use. [facility] Past Medical History Medical History Depression Bipolar disorder Anxiety History of skin cancer Hypertension Social History Social History Smoking status: Never smoker Alcohol intake: former Alcohol use details: SOCIAL DRINKER IN PAST Substance use: never Living arrangements: with family Additional living arrangements comments: SON Spiritual care concerns: No Medications Home Medications Medication Instructions Recorded Confirmed Type amlodipine 10 mg tablet 10 mg PO QAM 07/27/20 08/05/20 History cariprazine 6 mg capsule (Vraylar) 6 mg PO DAILY 07/27/20 08/05/20 History lisinopril 20 mg tablet 20 mg PO QAM 07/27/20 08/05/20 History propranolol 40 mg tablet 80 mg PO BID 07/27/20 08/05/20 History quetiapine 50 mg tablet 50 mg PO HS 07/27/20 08/05/20 History doxycycline hyclate 100 mg capsule 100 mg PO DAILY #7 caps 08/05/20 Rx tramadol 50 mg tablet 50 - 100 mg (1 - 2 x 50 mg) PO Q6H 08/05/20 Rx PRN pain #8 tabs cephalexin 500 mg capsule 500 mg PO Q12H #14 caps 11/19/23 11/19/23 Rx Sleep Procedure A full night CPAP/BPAP Titration using the [employer] SleepFlightCaster multi-channel system recorded the standard physiologic parameters including EEG, EOG, submentalis EMG, anterior tibialis EMG, EKG, body position, nasal and oral airflow using nasal pressure sensor and thermistor. Respiratory parameters of chest and abdominal movements were recorded with Respiratory Inductance Plethysmography belts. Oxygen saturation was recorded by pulse oximetry. Video monitoring was also performed. Sleep stages, periodic limb movements, and EEG arousals were scored in 30 second epochs according to the criteria of the AASM Scoring Manual. The Apnea-Hypopnea Index was calculated using [facility] guidelines for definition of hypopnea with 4% O2 desaturations while scoring respiratory events. Sleep Architecture The total recording time was 423.5 minutes. The total sleep time was 210.5 minutes. Sleep latency was 13.3 minutes. REM latency was 338.5 minutes. Sleep efficiency was 49.7%. The patient had 18 awakenings for an awakening index of 5.1. Wake after Sleep Onset time was 199.5 minutes. The patient spent 23.5 minutes, 11.2% of total sleep time in Stage N1. The patient spent 125.0 minutes, 59.4% in Stage N2. The patient spent 0.0 minutes, 0.0% in Stage N3. The patient spent 62.0 minutes, 29.5% in Stage REM. Respiratory Analysis The patient had 56 hypopneas, 35 obstructive apneas, 1 mixed apneas, and 42 central apneas for an overall Apnea Hypopnea Index of 38.2 events per hour. The REM Apnea Hypopnea Index was 9.7. The NREM Apnea Hypopnea Index was 50.1. The patient had a Central Apnea Hypopnea Index of 12.0. There was no evidence of Gary-Schilling Respirations. The patient was started on CPAP 5 cm H2O and titrated to BPAP 20/15 cm H2O. The patient was able to fall asleep starting on CPAP 5 cm H2O. The patient was able to achieve REM sleep starting on BPAP 19/13 cm H2O. the patient was able to achieve a residual AHI less than 10 with both NREM and REM sleep on the final pressure setting. On BPAP 20/15 cm H2O, the patient spent 3.5 minutes in NREM and 21 minutes in REM with 4 central apneas, resulting in an AHI of 9.8. The patient had a sleep efficiency of 79% on this pressure setting. Arousals There were 50 total arousals for an arousal index of 14.3. There were 23 spontaneous arousals for an index of 6.6. There were 22 arousals due to respiratory events for an index of 6.3. There were 3 arousals due to periodic limb movements for an index of 0.9. There were 2 arousals due to isolated limb movements for an index of 0.6. Periodic Limb Movements The patient had 16 isolated limb movements with an index of 4.6. The patient had 55 periodic limb movements with index of 15.7, which is elevated (normal < 15). Patient had a total of 71 limb movements with a total limb movement index of 20.2. Oximetry Data The patient had an average oxygen saturation of 88.5% in sleep with a minimum oxygen saturation of 76.0% and a maximum oxygen saturation of 100.0%. The patient had 106 oxygen desaturations that were 4% or greater resulting in an Oxygen Desaturation Index of 30.8. The patient spent 119.4 minutes, 30% of total sleep time with an oxygen saturation below 88%. Snoring Profile Snoring was not present during this study. Cardiac Profile The EKG showed normal sinus rhythm. No arrhythmias or premature beats were seen. The patient had an average pulse rate of 64.9 bpm with a minimum pulse rate of 56.0 bpm and a maximum pulse rate of 80.0 bpm. EEG Profile No signs of seizure activity seen. Assessment and Plan Assessment and Plan (1) NOEL (obstructive sleep apnea): Code(s): G47.33 - Obstructive sleep apnea (adult) (pediatric) Status: Acute Assessment and Plan: The patient was started on CPAP 5 cm H2O and titrated to BPAP 20/15 cm H2O. The patient's sleep apnea nearly resolved on the final pressure setting. I recommend that the patient be prescribed BPAP 20/15 cm H2O, size large F&P Simplus full face mask, BPAP filters/tubing and heated humidity. This should be used with all episodes of sleep. Compliance should be reviewed within 31-90 days of starting therapy for usage greater than 4 hours per night greater than 70% of the nights. The patient should be asked about symptoms such as excessive daytime sleepiness, quality of sleep, decreased nocturia, increased mental functioning such as memory, mood, and concentration. Data The data obtained during this sleep study is adequate for interpretation. Certification This sleep study has been reviewed by a board certified sleep medicine physician.
[2024-08-11 19:20] VITALS: BMI 38.4
== END 2024-07-18 06:09 | disposition home or self-care (01) ==
LOC: ANHCSM 09:09
PROVIDERS: PCP Family Medicine; Visit Provider Nurse Practitioner Family
DX: G47.30 Sleep apnea, unspecified (principal); G47.33 Obstructive sleep apnea (adult) (pediatric)
CPT/HCPCS: 95811